=== PATIENT | female | born 1935 ===

== ENCOUNTER 2016-10-07 16:32 | Emergency (ER) | payer MEDICARE, OTHER ==
[2016-10-07 16:49] VITALS: BMI 24.2
[2016-10-07 16:52] VITALS: TEMP 99; O2SAT 97
--- NOTE | 2016-10-07 17:12 | ED PDOC ---
Arrival/HPI - General Chief Complaint: Trauma Time Seen by Provider: 10/07/16 16:56 Historian: Patient, Family (son translates) - History of Present Illness Time/Duration: Other (yesterday) Symptom Onset: Sudden Symptom Course: Unchanged Quality: Aching Severity Level: Mild Associated Symptoms (Text): 10/07/16 17:10 Yesterday the patient was transferring from the wheelchair to the bed. She went to sit down and missed the edge and fell onto her buttocks. There was no head trauma loss of consciousness syncope dizziness lightheadedness numbness tingling or paresthesias. No extremity trauma. She complains of lower back pain. No neck pain. Past Medical History - Infectious Disease Hx of Infectious Diseases: None - Cardiac Hx Cardiac Disorders: Yes Hx Hypertension: Yes - Pulmonary Hx Respiratory Disorders: Yes Hx Asthma: Yes - Neurological Hx Neurological Disorder: Yes (H/O POLIO LEFT LEG WEAKNESS) - HEENT Hx HEENT Disorder: Yes Hx Cataracts: Yes (BIOL) - Renal Hx Renal Disorder: No - Endocrine/Metabolic Hx Endocrine Disorders: Yes Hx Diabetes Mellitus Type 2: Yes - Hematological/Oncological Hx Blood Disorders: No - Integumentary Hx Dermatological Disorder: No - Musculoskeletal/Rheumatological Hx Musculoskeletal Disorders: No - Gastrointestinal Hx Gastrointestinal Disorders: Yes HX Swallowing Problems: Yes - Genitourinary/Gynecological Hx Genitourinary Disorders: No - Psychiatric Hx Psychophysiologic Disorder: Yes Hx Anxiety: Yes Hx Substance Use: No - Surgical History Hx Cataract Extraction: Yes (BIOL) Hx Joint Replacement: Yes (RIGHT HIP REPLACEMENT X 2) Other/Comment: L THR - Anesthesia Hx Anesthesia: Yes Hx Anesthesia Reactions: No Hx Malignant Hyperthermia: No - Suicidal Assessment Feels Threatened In Home Enviroment: No Family/Social History - Physician Review Nursing Documentation Reviewed: Yes Family/Social History: Unknown Family HX Smoking Status: Never Smoked Hx Alcohol Use: No Hx Substance Use: No Allergies/Home Meds Allergies/Adverse Reactions: Allergies No Known Allergies Allergy (Verified 10/07/16 16:49) Home Medications: Home Meds Medication Instructions Recorded Confirmed Montelukast [Singulair] 10 mg PO DAILY 12/12/13 10/07/16 Omeprazole 20 mg PO DAILY 02/16/16 10/07/16 ALPRAZolam [Xanax] 0.5 mg PO HS PRN 07/14/16 10/07/16 Atenolol [Tenormin] 25 mg PO DAILY 07/14/16 10/07/16 Atorvastatin [Lipitor] 10 mg PO HS 07/14/16 10/07/16 Review of Systems - Physician Review All systems were reviewed & negative as marked: Yes - Review of Systems Respiratory: Normal Cardiovascular: Normal Gastrointestinal: Normal Genitourinary Female: Normal Physical Exam Vital Signs Temp Pulse Resp BP Pulse Ox 10/07/16 16:49 99 F 85 16 191/77 H 97 Temperature: Afebrile Blood Pressure: Hypertensive Pulse: Regular Respiratory Rate: Normal Appearance: Positive for: Well-Appearing, Non-Toxic, Uncomfortable Pain Distress: Mild Mental Status: Positive for: Alert and Oriented X 3 - Systems Exam Head: Present: Atraumatic, Normocephalic Neck: Present: Normal Range of Motion. No: MIDLINE TENDERNESS, Paraspinal Tenderness Respiratory/Chest: Present: Clear to Auscultation, Good Air Exchange. No: Respiratory Distress, Accessory Muscle Use Cardiovascular: Present: Regular Rate and Rhythm, Normal S1, S2. No: Murmurs Abdomen: Present: Normal Bowel Sounds. No: Tenderness, Distention, Peritoneal Signs, Rebound, Guarding Back: Present: Normal Inspection, Midline Tenderness, Paraspinal Tenderness, Other (Bilateral lumbar paraspinous tenderness with no spasm. No skin changes. No sciatic notch tenderness.). No: CVA Tenderness Upper Extremity: Present: Normal Inspection. No: Cyanosis, Edema Lower Extremity: Present: Normal Inspection, Other (polio left lower extremity) . No: Edema Neurological: Present: GCS=15, CN II-XII Intact, Speech Normal, Motor Func Grossly Intact Skin: Present: Warm, Dry, Normal Color. No: Rashes Medical Decision Making - RAD Interpretation Radiology Orders: 10/07/16 17:08 PELVIS ONE VIEW [RAD] Stat 10/07/16 17:09 LS SPINE WITH OBL > 18 YRS OLD [RAD] Stat Pelvis one view shows right hip hardware. DJD with no fracture or dislocation. Lumbosacral spine shows severe DJD. Compression fracture, age indeterminate. Contact Manager: ED Physician - Medication Orders Current Medication Orders: Discontinued Medications Acetaminophen (Tylenol 325mg Tab) 975 mg PO STAT STA Stop: 10/07/16 17:09 Disposition/Present on Arrival - Present on Arrival Any Indicators Present on Arrival: No History of DVT/PE: No History of Uncontrolled Diabetes: No Urinary Catheter: No History of Decub. Ulcer: No History Surgical Site Infection Following: None - Disposition Have Diagnosis and Disposition been Completed?: Yes Diagnosis: Contusion of buttock, Back contusion, Osteoarthritis, Lumbar compression fracture Disposition: HOME/ ROUTINE Disposition Time: 18:22 Patient Plan: Discharge Condition: GOOD Discharge Instructions (ExitCare): Contusion in Adults (ED), Vertebral Compression Fracture (ED) Additional Instructions: Rest and moist heat. Follow-up with Dr. Mooney. Follow-up in the ER as needed. Prescriptions: Tramadol HCl [Ultram] 50 mg PO Q6 PRN #15 tab PRN Reason: Pain
[2016-10-07 18:42] VITALS: BP 185/75; PULSE 79; RESP 18
--- NOTE | 2016-10-08 09:15 | RAD ---
PROCEDURE: Radiographs of the pelvis. HISTORY: trauma COMPARISON: 02/19/2016 -left hip FINDINGS: BONES: Sacroiliac sclerosis, inferior lumbar spondylosis and degenerative disc disease. Status post right hip arthroplasty -femoral component with cerclage wires. Acetabular component with at least 1 vertical screw. Slight deformity of the inferior right pubic ring does not appear acute Left proximal femur evaluation limited - seen on end. No interval changes perceived. Pubic symphyseal joint is normal Generalized osteopenia JOINTS: As above OTHER FINDINGS: None IMPRESSION: No interval fractures appreciated. No gross interval hardware failure. Limited evaluation of the proximal left femur specially the neck given its anteverted -on end appearance .
--- NOTE | 2016-10-08 09:27 | RAD ---
PROCEDURE: Radiographs of the Lumbar Spine. HISTORY: trauma COMPARISON: No prior. FINDINGS: BONES: Inferior slight rightward convexity degenerative type wedging of the left L4 vertebral body. Five non rib-bearing lumbar vertebrae suggested minimal anterior compression/wedging of L3 - inferior sclerotic changes - the exact chronicity of this is unknown. No retropulsed ossific fragments. Degenerative wedging with marked prominent marginal osteophytes are favored. Additional marginal osteophytes at the L4-5 left side and on the left L4 L3-4 side are present DISC SPACES: Severe L4-5 disc space narrowing OTHER FINDINGS: Left L4-5 and right L5-S1 right L4-5 facet arthrosis. Extensive atherosclerotic vascular calcifications descending abdominal aorta Partially visualized is a right prosthesis IMPRESSION: Mild scoliosis, advanced spondylosis and advanced degenerative disc disease. The mild loss of height of the main the L3 vertebral body on the lateral view may be due to degenerative wedging. Some minimal compression deformity here is difficult to exclude no comparisons are available. No retropulsed ossific fragments appreciated. Degenerative wedging is favored.
== END 2016-10-07 18:48 | disposition home or self-care (01) ==
LOC: ED 16:32
DX: S30.0XXA Contusion of lower back and pelvis, initial encounter (principal); W06.XXXA Fall from bed, initial encounter; I10 Essential (primary) hypertension; E11.9 Type 2 diabetes mellitus without complications; M48.56XA Collapsed vertebra, not elsewhere classified, lumbar region, initial encounter for fracture; M19.90 Unspecified osteoarthritis, unspecified site

== ENCOUNTER 2016-10-12 08:12 | Emergency (ER) | payer MEDICARE, OTHER ==
[2016-10-12 08:23] VITALS: BP 189/86; PULSE 84; RESP 18; TEMP 98.1; O2SAT 99; BMI 31.1
--- NOTE | 2016-10-12 08:23 | ED PDOC ---
Arrival/HPI - General Chief Complaint: Trauma Time Seen by Provider: 10/12/16 08:16 Historian: Patient - History of Present Illness Narrative History of Present Illness (Text): 10/12/16 08:22 Latasha Jennings is an 81 year old female who presents to the emergency department today for pain to the right buttocks. About a week ago patient injuring the right buttocks and back and was seen in the emergency department status post the fall. Patient was found to have an age indeterminate L3 fracture and was seen home on Ultram. Patient otherwise denies any other pain, trauma, or injury. PMD: None reported. Time/Duration: 1 week Symptom Onset: Gradual Symptom Course: Unchanged Activities at Onset: Light Context: Home Associated Symptoms (Text): 10/12/16 08:41 Patient had a mechanical fall when transferring from the wheelchair approximately one week ago. She was seen in the emergency department by myself. She had x-rays at that time which showed an age indeterminant L3 compression fracture. She was given a prescription for Ultram. The Ultram is no longer helping. There was no new injury or trauma. No abdominal pain nausea vomiting or diarrhea. No genitourinary symptoms. No fever or chills. Past Medical History - Provider Review Nursing Documentation Reviewed: Yes - Infectious Disease Hx of Infectious Diseases: None - Cardiac Hx Cardiac Disorders: Yes Hx Hypertension: Yes - Pulmonary Hx Respiratory Disorders: Yes Hx Asthma: Yes - Neurological Hx Neurological Disorder: Yes (H/O POLIO LEFT LEG WEAKNESS) - HEENT Hx HEENT Disorder: Yes Hx Cataracts: Yes (BIOL) - Renal Hx Renal Disorder: No - Endocrine/Metabolic Hx Endocrine Disorders: Yes Hx Diabetes Mellitus Type 2: Yes - Hematological/Oncological Hx Blood Disorders: No - Integumentary Hx Dermatological Disorder: No - Musculoskeletal/Rheumatological Hx Musculoskeletal Disorders: No - Gastrointestinal Hx Gastrointestinal Disorders: Yes HX Swallowing Problems: Yes - Genitourinary/Gynecological Hx Genitourinary Disorders: No - Psychiatric Hx Psychophysiologic Disorder: Yes Hx Anxiety: Yes Hx Substance Use: No - Surgical History Hx Cataract Extraction: Yes (BIOL) Hx Joint Replacement: Yes (RIGHT HIP REPLACEMENT X 2) Other/Comment: L THR - Anesthesia Hx Anesthesia: Yes Hx Anesthesia Reactions: No Hx Malignant Hyperthermia: No - Suicidal Assessment Feels Threatened In Home Enviroment: No Family/Social History - Physician Review Nursing Documentation Reviewed: Yes Family/Social History: No Known Family HX Smoking Status: Never Smoked Hx Alcohol Use: No Hx Substance Use: No Allergies/Home Meds Allergies/Adverse Reactions: Allergies No Known Allergies Allergy (Verified 10/12/16 08:18) Home Medications: Home Meds Medication Instructions Recorded Confirmed Montelukast [Singulair] 10 mg PO DAILY 12/12/13 10/07/16 Omeprazole 20 mg PO DAILY 02/16/16 10/07/16 ALPRAZolam [Xanax] 0.5 mg PO HS PRN 07/14/16 10/07/16 Atenolol [Tenormin] 25 mg PO DAILY 07/14/16 10/07/16 Atorvastatin [Lipitor] 10 mg PO HS 07/14/16 10/07/16 Review of Systems - Physician Review All systems were reviewed & negative as marked: Yes - Review of Systems Constitutional: Normal. absent: Fevers Respiratory: Normal. absent: SOB Cardiovascular: Normal. absent: Chest Pain Gastrointestinal: Normal. absent: Abdominal Pain, Diarrhea, Nausea, Vomiting Genitourinary Female: Normal. absent: Dysuria, Frequency, Hematuria, Urine Output Changes Musculoskeletal: Other (Pain to the Right Buttocks) Skin: Normal Neurological: Normal Physical Exam Vital Signs Reviewed: Yes Vital Signs Temp Pulse Resp BP Pulse Ox 10/12/16 08:16 98.1 F 84 18 189/86 H 99 Temperature: Afebrile Blood Pressure: Hypertensive Pulse: Regular Respiratory Rate: Normal Appearance: Positive for: Well-Appearing, Non-Toxic, Uncomfortable Pain Distress: Mild Mental Status: Positive for: Alert and Oriented X 3 - Systems Exam Head: Present: Atraumatic, Normocephalic Pupils: Present: PERRL Extroacular Muscles: Present: EOMI Conjunctiva: Present: Normal Mouth: Present: Moist Mucous Membranes Neck: Present: Normal Range of Motion Respiratory/Chest: Present: Clear to Auscultation, Good Air Exchange. No: Respiratory Distress, Accessory Muscle Use Cardiovascular: Present: Regular Rate and Rhythm, Normal S1, S2. No: Murmurs Abdomen: Present: Normal Bowel Sounds. No: Tenderness, Distention, Peritoneal Signs Back: Present: Normal Inspection. No: CVA Tenderness, Midline Tenderness, Paraspinal Tenderness Upper Extremity: Present: Normal Inspection. No: Cyanosis, Edema Lower Extremity: Present: Tenderness, Other (Pain to the Right Buttocks Area). No: Edema, Swelling, Erythema, Deformity Neurological: Present: GCS=15, CN II-XII Intact, Speech Normal, Motor Func Grossly Intact Skin: Present: Warm, Dry, Normal Color. No: Rashes Psychiatric: Present: Alert, Oriented x 3, Normal Insight, Normal Concentration Medical Decision Making ED Course and Treatment: 10/12/16 08:22 Impression: 81 year old female complaining of pain to the right buttocks. Patient recently fell about a week ago. Plan: -- Toradol -- Reassess and disposition Prior Visits: Notes and results from previous visits were reviewed Patient was last seen in the emergency department on 10/07/16 status post a fall. Pelvis X-ray negative and Lumbrasacral spine X-ray showed age indeterminate fracture. Progress Notes: - RAD Interpretation Radiology Orders: 10/12/16 08:43 Femur Right [FEMUR MIN 2 VIEWS RT] [RAD] Stat Right femur shows a total hip replacement. No fracture or dislocation Machine Molder: ED Physician - Medication Orders Current Medication Orders: Discontinued Medications Ketorolac Tromethamine (Toradol) 30 mg IM ONCE ONE Stop: 10/12/16 08:20 Last Admin: 10/12/16 08:30 Dose: 30 mg - Scribe Statement The provider has reviewed the documentation as recorded by the Jeannette Hansen Provider Attestation: All medical record entries made by the Jeannette were at my direction and personally dictated by me. I have reviewed the chart and agree that the record accurately reflects my personal performance of the history, physical exam, medical decision making, and the department course for this patient. I have also personally directed, reviewed, and agree with the discharge instructions and disposition. Disposition/Present on Arrival - Present on Arrival Any Indicators Present on Arrival: No History of DVT/PE: No History of Uncontrolled Diabetes: No Urinary Catheter: No History of Decub. Ulcer: No History Surgical Site Infection Following: None - Disposition Have Diagnosis and Disposition been Completed?: Yes Diagnosis: Lumbar compression fracture, Contusion of buttock Disposition: HOME/ ROUTINE Disposition Time: 09:12 Patient Plan: Discharge Condition: GOOD Discharge Instructions (ExitCare): Vertebral Compression Fracture (ED), Contusion in Adults (ED) Additional Instructions: Rest and moist heat. Follow-up with Dr. Mooney. Follow up in ER as needed Prescriptions: oxyCODONE/Acetaminophen [Percocet 5/325 mg Tab] 1 ea PO Q6 #15 tab Ondansetron [Zofran Odt] 4 mg SL Q6 #20 odt
--- NOTE | 2016-10-12 12:42 | RAD ---
PROCEDURE: Right femur HISTORY: trauma COMPARISON: Hip and pelvis 02/19/2016 TECHNIQUE: Two views of right femur. FINDINGS: Status post right hip arthroplasty. No acute fracture. No evidence of prosthesis loosening. No dislocation. IMPRESSION: No acute fracture. Right hip arthroplasty peer
== END 2016-10-12 09:30 | disposition home or self-care (01) ==
LOC: ED 08:12
DX: S30.0XXD Contusion of lower back and pelvis, subsequent encounter (principal); M48.56XD Collapsed vertebra, not elsewhere classified, lumbar region, subsequent encounter for fracture with routine healing; W06.XXXD Fall from bed, subsequent encounter
CPT/HCPCS: 73552; 96372; 99283; J1885

== ENCOUNTER 2016-10-23 19:32 | Inpatient (IN) | payer MEDICARE, OTHER ==
[2016-10-23 19:44] VITALS: BMI 22.8
--- NOTE | 2016-10-23 20:08 | ED PDOC ---
Arrival/HPI - General Historian: Patient - History of Present Illness Time/Duration: < week Symptom Onset: Gradual Symptom Course: Unchanged Quality: Other (no pain) Severity Level: Moderate Activities at Onset: Rest Context: Home <nAna Patel - Last Filed: 10/23/16 22:02> <Darnell Knight - Last Filed: 10/23/16 22:07> - General Chief Complaint: GI Problem Time Seen by Provider: 10/23/16 19:35 - History of Present Illness Narrative History of Present Illness (Text): 10/23/16 20:05 This is an 81Y F with PMH polio s/p L leg weakness, cataracts, HTN, HLD , asthma, anxiety and dementia who came to ED for diarrhea x 2 days. She reports it is constant and dark in color. She denies having abdominal pain, n/v , dysuria, hematuria, CP, SOB, sick contacts or eating new foods. The patient denies fever or chills. She is also complaining of R sided leg and back pain. She was recently seen at [facility] for fall on the R side. Patient reports she lives alone. (Anna Patel) Past Medical History - Provider Review Nursing Documentation Reviewed: Yes - Infectious Disease Hx of Infectious Diseases: None - Cardiac Hx Cardiac Disorders: Yes Hx Hypertension: Yes - Pulmonary Hx Respiratory Disorders: Yes Hx Asthma: Yes - Neurological Hx Neurological Disorder: Yes (H/O POLIO LEFT LEG WEAKNESS) - HEENT Hx HEENT Disorder: Yes Hx Cataracts: Yes (BIOL) - Renal Hx Renal Disorder: No - Endocrine/Metabolic Hx Endocrine Disorders: Yes Hx Diabetes Mellitus Type 2: Yes - Hematological/Oncological Hx Blood Disorders: No - Integumentary Hx Dermatological Disorder: No - Musculoskeletal/Rheumatological Hx Musculoskeletal Disorders: No - Gastrointestinal Hx Gastrointestinal Disorders: Yes HX Swallowing Problems: Yes - Genitourinary/Gynecological Hx Genitourinary Disorders: No - Psychiatric Hx Psychophysiologic Disorder: Yes Hx Anxiety: Yes Hx Substance Use: No - Surgical History Hx Cataract Extraction: Yes (BIOL) Hx Joint Replacement: Yes (RIGHT HIP REPLACEMENT X 2) Other/Comment: L THR - Anesthesia Hx Anesthesia: Yes Hx Anesthesia Reactions: No Hx Malignant Hyperthermia: No - Suicidal Assessment Feels Threatened In Home Enviroment: No <Anna Patel - Last Filed: 10/23/16 22:02> Family/Social History - Physician Review Nursing Documentation Reviewed: Yes Family/Social History: Unknown Family HX Smoking Status: Never Smoked Hx Alcohol Use: No Hx Substance Use: No <Anna Patel - Last Filed: 10/23/16 22:02> Allergies/Home Meds <Anna Patel - Last Filed: 10/23/16 22:02> <Darnell Knight - Last Filed: 10/23/16 22:07> Allergies/Adverse Reactions: Allergies No Known Allergies Allergy (Verified 10/12/16 08:18) Home Medications: Home Meds Medication Instructions Recorded Confirmed Unobtainable 10/23/16 10/23/16 Review of Systems - Physician Review All systems were reviewed & negative as marked: Yes - Review of Systems Constitutional: Normal. absent: Weight Change, Fevers Eyes: Normal. absent: Vision Changes ENT: Normal Respiratory: Normal. absent: SOB, Cough Cardiovascular: Normal. absent: Chest Pain Gastrointestinal: Stool Changes, Diarrhea. absent: Abdominal Pain, Constipation , Nausea, Vomiting, Hematemesis Genitourinary Female: Normal. absent: Dysuria, Frequency, Hematuria Musculoskeletal: Normal. absent: Arthralgias Skin: Normal. absent: Rash, Pruritis Neurological: Normal. absent: Headache, Dizziness Endocrine: Normal. absent: Diaphoresis Hemo/Lymphatic: Normal <Anna Patel - Last Filed: 10/23/16 22:02> Physical Exam Vital Signs Reviewed: Yes Temperature: Afebrile Blood Pressure: Hypertensive Pulse: Tachycardic Respiratory Rate: Normal Appearance: Positive for: Well-Appearing, Non-Toxic, Comfortable Pain Distress: None Mental Status: Positive for: Alert and Oriented X 3 - Systems Exam Head: Present: Atraumatic, Normocephalic Mouth: Present: Moist Mucous Membranes Neck: Present: Normal Range of Motion Respiratory/Chest: Present: Clear to Auscultation, Good Air Exchange. No: Respiratory Distress, Accessory Muscle Use Cardiovascular: Present: Regular Rate and Rhythm, Normal S1, S2. No: Murmurs Abdomen: Present: Normal Bowel Sounds. No: Tenderness, Distention, Peritoneal Signs, Rebound, Guarding Rectal: Present: Rectal Tenderness, Hemorrhoids, Normal Rectal Tone. No: Occult Blood, Gross Blood, Melena Back: Present: Normal Inspection Upper Extremity: Present: Normal Inspection. No: Cyanosis, Edema Lower Extremity: Present: Normal Inspection. No: Edema Neurological: Present: GCS=15, CN II-XII Intact, Speech Normal Skin: Present: Warm, Dry, Normal Color. No: Rashes Psychiatric: Present: Alert, Normal Concentration, Other. No: Oriented x 3, Normal Insight <Anna Patel - Last Filed: 10/23/16 22:02> <Darnell Knight - Last Filed: 10/23/16 22:07> Vital Signs Temp Pulse Resp BP Pulse Ox 10/23/16 19:44 98.5 F 103 H 20 187/92 H 100 Medical Decision Making Re-evaluation Time: 21:41 - Lab Interpretations I have reviewed the lab results: Yes Interpretation: Abnormal lab values - EKG Interpretation Interpreted by ED Physician: Yes Type: 12 lead EKG Comparison: Com.w/previous EKG <Anna Patel - Last Filed: 10/23/16 22:02> <Darnell Knight - Last Filed: 10/23/16 22:07> ED Course and Treatment: Impression: This is an 81Y F with PMH polio s/p L leg weakness, cataracts, HTN, HLD , asthma, anxiety and dementia who came to ED for diarrhea x 2 days. She denies abdominal pain. DDX: Colitis, Diverticulitis Plan: -- CBC, CMP, U/A, Hemeoccult -- EKG -- Reassess Prior Visits: Notes and results from previous visits were reviewed. Progress Note: Hemeoccult noted to be negative. Daughter is now at bedside. Patient complains of R leg pain. Given Toradol for pain. Spoke with daughter who is very concerned about her mother's well-being. Her mother lives alone, does not remember to take her medication and has had multiple falls. Her mother won't answer the door if help comes to her door. She would like her mother to be placed in a facility where she can have 24hr care. Admit Patient: Re-evaluation. Patient feels better. Discussed results and plan to admit with patient who expresses understanding. All questions answered and there is agreement with the plan. (Anna Patel) 10/23/16 20:26 Seen and examined with the resident. Our history and physical exam reveals an elderly woman complaining of a 2 day history of diarrhea. No vomiting. No abdominal pain. Has been black, but her rectal exam is guaiac negative. I have seen her twice before for lower back pain and right lower extremity pain. She continues to have the same complaints. She did have a compression fracture, the other x-rays have been negative. 10/23/16 21:53 Patient's daughter is here and reports that the patient is unable to care for herself at home. She lives at home alone. Daughter has had Adult Protective Services and multiple different home health aids which the patient refuses to allow into her home. Daughter reports that she would like retirement placement and the patient agrees to go to a retirement. I spoke with who requests that the hospitalist admit the patient for retirement placement. I spoke with the house doctor who will admit to the hospitalist service. Patient has fallen multiple times according to the daughter. She is a danger to herself to be at home alone. 10/23/16 22:06 EKG shows normal sinus rhythm rate approximately 90 with a primary AV block and no acute ST or T-wave changes (Tolerico,Darnell) - Lab Interpretations Lab Results: 10/23/16 20:11 10/23/16 20:11 Lab Results 10/23/16 21:15: Urine Color Yellow, Urine Appearance Clear, Urine pH 7.5, Ur Specific [place] 1.020, Urine Protein Negative, Urine Glucose (UA) 500 H, Urine Ketones Negative, Urine Blood Trace-intact H, Urine Nitrate Negative, Urine Bilirubin Negative, Urine Urobilinogen 1.0 H, Ur Leukocyte Esterase Negative, Urine RBC 2 - 5, Urine WBC 0 - 2, Ur Epithelial Cells 3 - 4 10/23/16 20:11: Sodium 142, Potassium 3.5 L, Chloride 102, Carbon Dioxide 31, Anion Gap 13, BUN 12, Creatinine 0.7, Est GFR ( Amer) > 60, Est GFR (Non- Af Amer) > 60, Random Glucose 98, Calcium 10.1, Total Bilirubin 0.9, AST 30, ALT 23, Alkaline Phosphatase 142 H, Total Protein 8.2, Albumin 4.3, Globulin 3.9 , Albumin/Globulin Ratio 1.1 10/23/16 20:11: WBC 6.4, RBC 4.55, Hgb 14.1, Hct 41.7, MCV 91.6, MCH 31.0, MCHC 33.8, RDW 12.7, Plt Count 305, MPV 10.3, Gran % 68.9 H, Lymph % (Auto) 19.3 L, [place] % (Auto) 10.8 H, Eos % (Auto) 0.5 L, Baso % (Auto) 0.5, Gran # 4.39, Lymph # 1.2, [place] # 0.7 H, Eos # 0.0, Baso # 0.03 - EKG Interpretation EKG Interpretation (Text): 10/23/16 20:13 HR at 93. [place] interval prolonged. Other intervals within normal limits. Sinus rhythm with 1st degree AV block. (Anna Patel) - Medication Orders Current Medication Orders: Discontinued Medications Ketorolac Tromethamine (Toradol) 15 mg IVP STAT STA Stop: 10/23/16 21:40 Last Admin: 10/23/16 22:02 Dose: 15 mg Potassium Chloride (Klor-Con 10) 10 meq PO STAT STA Stop: 10/23/16 20:42 Last Admin: 10/23/16 21:23 Dose: 10 meq Disposition/Present on Arrival - Present on Arrival Any Indicators Present on Arrival: No History of DVT/PE: No History of Uncontrolled Diabetes: No Urinary Catheter: No History of Decub. Ulcer: No History Surgical Site Infection Following: None - Disposition Have Diagnosis and Disposition been Completed?: Yes Patient Plan: Admission <Anna Patel - Last Filed: 10/23/16 22:02> - Present on Arrival Any Indicators Present on Arrival: No History of DVT/PE: No History of Uncontrolled Diabetes: No Urinary Catheter: No History of Decub. Ulcer: No - Disposition Have Diagnosis and Disposition been Completed?: Yes Disposition Time: 21:56 Patient Plan: Admission <Darnell Knight - Last Filed: 10/23/16 22:07> - Disposition Diagnosis: Diarrhea, Hypokalemia, Dementia, Weakness, Hypertension Disposition: HOSPITALIZED Patient Problems: Current Active Problems Problem Status Onset Dementia Acute Diarrhea Acute Hypertension Acute Hypokalemia Acute Weakness Acute Condition: GOOD Discharge Instructions (ExitCare): Weakness (ED) Print Language: CZECH Referrals: [facility] Sarah Req, [Primary Care Provider] - Follow up with primary
[2016-10-23 20:15] LABS: ADD MANUAL DIFF? NO
[2016-10-23 20:22] LABS: BASO # 0.03 K/mm3 (0.0-2.0); BASO % 0.5 % (0.0-3.0); EOS % 0.5 % (1.5-5.0); GRAN # 4.39 (1.4-6.5); GRAN % 68.9 % (50.0-68.0); HEMATOCRIT 41.7 % (36.0-48.0); LYMPH # 1.2 (1.2-3.4); LYMPH % 19.3 % (22.0-35.0); MEAN CELL VOLUME 91.6 fL (80.0-105.0); MEAN CORPUSCULAR HGB CONC 33.8 g/dl (31.0-37.0); MEAN PLATELET VOLUME 10.3 fl (7.0-11.0); MONO # 0.7 (0.1-0.6); MONO % 10.8 % (1.0-6.0); PLATELET COUNT 305 10^3/uL (120.0-450.0); RED CELL DISTRIBUTION WIDTH 12.7 % (11.5-14.5); WHITE BLOOD COUNT 6.4 10^3/ul (4.5-11.0)
[2016-10-23 20:31] LABS: ALB/GLOB RATIO 1.1 (1.1-1.8); ALKALINE PHOSPHATASE 142 U/L (38-133); ALT/SGPT 23 U/L (7-56); AST/SGOT 30 U/L (15-39); BILIRUBIN,TOTAL 0.9 mg/dL (0.2-1.3); BLOOD UREA NITROGEN 12 mg/dL (7-21); CALCIUM 10.1 mg/dL (8.4-10.5); CARBON DIOXIDE 31 mmol/L (21-33); CHLORIDE 102 mmol/L (98-107); GFR AFRICAN-AMERICAN > 60; GLUCOSE,RANDOM 98 mg/dL (70-110); POTASSIUM 3.5 mmol/L (3.6-5.0); SODIUM 142 mmol/L (132-148); TOTAL PROTEIN 8.2 g/dL (5.8-8.3)
[2016-10-23] MEDS ORDERED: Potassium Chloride 10 mEq ER Tab PO STA (20:41)
[2016-10-23 21:29] LABS: PH,URINE 7.5 (4.7-8.0); URINE BILIRUBIN NEGATIVE (NEGATIVE); URINE BLOOD TRACE-INTACT (NEGATIVE); URINE GLUCOSE (UA) 500 mg/dL (NEGATIVE); URINE KETONE NEGATIVE (NEGATIVE); URINE LEUKOCYTE ESTERASE NEGATIVE Leu/uL (NEGATIVE); URINE PROTEIN NEGATIVE mg/dL (<30 mg/dL)
[2016-10-23 21:39] LABS: URINE COLOR YELLOW (YELLOW)
[2016-10-23 21:40] LABS: URINE APPEARANCE CLEAR (CLEAR)
[2016-10-23 21:41] LABS: URINE WBC 0 - 2 /hpf (0-6)
--- NOTE | 2016-10-24 00:33 | CP.PCM.HP ---
<Lisandra Sosa - Last Filed: 10/24/16 01:31> History of Present Illness - History of Present Illness History of Present Illness: PGY-1 h&p 81 yo female with PMH of polio s/p left weakness, cataract, HTN, HLD, asthma, anxiety, DM and dementia presents to ED with diarrhea and abd pain. Patient states that the diarrhea has been constant for past 2 days. Denies any blood in the stool. Per daughter patient had recent been to the ED for falling twice within the last few weeks. Patient uses a wheelchair at baseline. Patient also reports mild dry cough. Denies headache, dizziness, chest pain, urinary symptoms. In ED patient was found to be hypertensive. Per daughter patient lives alone and compliance with medication is unknown. PMH: polio s/p left weakness, cataract, HTN, HLD, asthma, anxiety, DM and dementia PSH: right sided hip replacement x2 Social: denies smoking, alcohol use, illicit drug use fam hx: mother- DM allergy: NKDA PMD: Dr. Mooney Present on Admission - Present on Admission Any Indicators Present on Admission: No Review of Systems - Constitutional Constitutional: absent: Chills, Fatigue, Fever, Headache, Weight Gain, Weight Loss, Weakness - EENT Nose/Mouth/Throat: absent: Nasal Congestion, Nasal Discharge, Sore Throat - Cardiovascular Cardiovascular: absent: Chest Pain, Chest Pain with Activity, Diaphoresis, Dyspnea - Respiratory Respiratory: Cough. absent: Dyspnea, Hemoptysis - Gastrointestinal Gastrointestinal: Abdominal Pain, Diarrhea. absent: Constipation, Hematochezia , Nausea, Vomiting - Genitourinary Genitourinary: absent: Difficulty Urinating, Dysuria, Hematuria - Musculoskeletal Musculoskeletal: Muscle Weakness, Myalgias - Integumentary Integumentary: absent: Rash, Skin Ulcer, Striae, Wounds - Neurological Neurological: absent: Dizziness, Headaches, Syncope, Weakness - Hematologic/Lymphatic Hematologic: absent: Easy Bleeding, Easy Bruising Past Patient History - Infectious Disease Hx of Infectious Diseases: None - Past Medical History & Family History Past Medical History?: Yes - Past Social History Smoking Status: Never Smoked Alcohol: None Drugs: Denies - CARDIAC Hx Cardiac Disorders: Yes Hx Hypertension: Yes - PULMONARY Hx Respiratory Disorders: Yes Hx Asthma: Yes - NEUROLOGICAL Hx Neurological Disorder: Yes (H/O POLIO LEFT LEG WEAKNESS) - HEENT Hx HEENT Problems: Yes Hx Cataracts: Yes (BIOL) - RENAL Hx Chronic Kidney Disease: No - ENDOCRINE/METABOLIC Hx Endocrine Disorders: Yes Hx Diabetes Mellitus Type 2: Yes - HEMATOLOGICAL/ONCOLOGICAL Hx Blood Disorders: No - INTEGUMENTARY Hx Dermatological Problems: No - MUSCULOSKELETAL/RHEUMATOLOGICAL Hx Musculoskeletal Disorders: No - GASTROINTESTINAL Hx Gastrointestinal Disorders: Yes HX Swallowing Problems: Yes - GENITOURINARY/GYNECOLOGICAL Hx Genitourinary Disorders: No - PSYCHIATRIC Hx Psychophysiologic Disorder: Yes Hx Anxiety: Yes Hx Substance Use: No - SURGICAL HISTORY Hx Cataract Extraction: Yes (BIOL) Hx Joint Replacement: Yes (RIGHT HIP REPLACEMENT X 2) Other/Comment: L THR - ANESTHESIA Hx Anesthesia: Yes Hx Anesthesia Reactions: No Hx Malignant Hyperthermia: No Meds Allergies/Adverse Reactions: Allergies Allergy/AdvReac Type Severity Reaction Status Date / Time No Known Allergies Allergy Verified 10/12/16 08:18 Physical Exam - Constitutional Appears: Well, No Acute Distress - Head Exam Head Exam: ATRAUMATIC, NORMOCEPHALIC - Eye Exam Eye Exam: Normal appearance - ENT Exam ENT Exam: Mucous Membranes Moist - Respiratory Exam Respiratory Exam: Clear to Auscultation Bilateral, NORMAL BREATHING PATTERN. absent: Rhonchi, Wheezes, Respiratory Distress - Cardiovascular Exam Cardiovascular Exam: REGULAR RHYTHM, +S1, +S2. absent: Tachycardia, Diastolic murmur, Systolic Murmur - GI/Abdominal Exam GI & Abdominal Exam: Normal Bowel Sounds, Soft. absent: Distended, Firm, Guarding, Tenderness - Extremities Exam Extremities exam: Positive for: normal inspection, tenderness Results - Vital Signs Recent Vital Signs: Last Vital Signs Temp 98.5 F 10/23/16 19:44 Pulse 75 10/23/16 23:41 Resp 16 10/23/16 23:41 BP 193/82 H 10/23/16 23:41 Pulse Ox 100 10/23/16 23:41 - Labs Result Diagrams: 10/23/16 20:11 10/23/16 20:11 Assessment & Plan - Assessment and Plan (Free Text) Assessment: 81 yo female with PMH of polio s/p left weakness, cataract, HTN, HLD, asthma, anxiety, DM and dementia presents to ED with diarrhea and abd pain, found to have uncontrolled HTN in ED. Plan: 1. HTN - cont atenolol 25mg daily - start norvasc 10mg daily - hydralazine 10 PRN - cont to monitor 2. diarrhea and abd pain - improved - IVF NS @100 - cont to monitor 3. DM - hold home medication - lispro ISS- low - Fingersticks ACHS 4. anxiety - cont home med xanax 0.5 BID prn 5. HLD - cont home med lipitor ppx GI- protonix DVT- SCDs <Zeke Donnelly MD - Last Filed: 10/26/16 09:03> Results - Vital Signs Recent Vital Signs: Last Vital Signs Temp 98.9 F 10/26/16 08:16 Pulse 75 10/26/16 08:16 Resp 22 10/26/16 08:16 BP 160/75 H 10/26/16 08:16 Pulse Ox 99 10/26/16 08:16 - Labs Result Diagrams: 10/26/16 07:58 10/26/16 07:58 Labs: Laboratory Results - last 24 hr 10/25/16 10/25/16 10/25/16 09:20 11:28 16:09 WBC RBC Hgb Hct MCV MCH MCHC RDW Plt Count MPV Gran % Lymph % (Auto) [place] % (Auto) Eos % (Auto) Baso % (Auto) Gran # Lymph # [place] # Eos # Baso # Sodium Potassium Chloride Carbon Dioxide Anion Gap BUN Creatinine Est GFR ( Amer) Est GFR (Non-Af Amer) POC Glucose (mg/dL) 210 H 194 H Random Glucose Calcium Magnesium 1.6 L Total Bilirubin AST ALT Alkaline Phosphatase Total Protein Albumin Globulin Albumin/Globulin Ratio 10/25/16 10/26/16 10/26/16 21:36 07:58 07:58 WBC 16.0 H D RBC 4.29 Hgb 13.5 Hct 39.4 MCV 91.8 MCH 31.5 MCHC 34.3 RDW 13.1 Plt Count 276 MPV 10.3 Gran % 86.5 H Lymph % (Auto) 7.6 L [place] % (Auto) 5.1 Eos % (Auto) 0.6 L Baso % (Auto) 0.2 Gran # 13.87 H Lymph # 1.2 [place] # 0.8 H Eos # 0.1 Baso # 0.03 Sodium 142 Potassium 4.6 Chloride 107 Carbon Dioxide 24 Anion Gap 16 BUN 9 Creatinine 0.6 Est GFR ( Amer) > 60 Est GFR (Non-Af Amer) > 60 POC Glucose (mg/dL) 156 H Random Glucose 150 H Calcium 9.0 Magnesium Total Bilirubin 1.0 AST 29 ALT 33 Alkaline Phosphatase 141 H Total Protein 7.5 Albumin 3.9 Globulin 3.5 Albumin/Globulin Ratio 1.1 Attending/Attestation - Attestation I have personally seen and examined this patient.: Yes I have fully participated in the care of the patient.: Yes I have reviewed all pertinent clinical information: Yes Notes (Text): 10/26/16 09:01 -I agree with the above H&P completed by the resident physician with the following changes and/or additions: The patient is an 81 year old woman admitted with uncontrolled HTN and recurring falls. Her BP will be controlled with 2 antihypertensive meds plus PRN Clonidine. Also, her daughter states that the patient can not care for herself and needs shelter placement. Social work consult has been placed.
[2016-10-24] MEDS: Sodium Chloride 0.9% 1,000 ML IV SCH (01:36)
[2016-10-24 07:21] LABS: ADD MANUAL DIFF? NO
[2016-10-24 07:29] LABS: BASO # 0.02 K/mm3 (0.0-2.0); BASO % 0.4 % (0.0-3.0); EOS # 0.3 (0.0-0.7); EOS % 5.1 % (1.5-5.0); GRAN # 2.97 (1.4-6.5); GRAN % 56.1 % (50.0-68.0); HEMATOCRIT 36.6 % (36.0-48.0); LYMPH # 1.6 (1.2-3.4); LYMPH % 30.8 % (22.0-35.0); MEAN CELL VOLUME 92.2 fL (80.0-105.0); MEAN CORPUSCULAR HEMOGLOBIN 30.7 pg (25.0-35.0); MEAN CORPUSCULAR HGB CONC 33.3 g/dl (31.0-37.0); MEAN PLATELET VOLUME 10.3 fl (7.0-11.0); MONO # 0.4 (0.1-0.6); MONO % 7.6 % (1.0-6.0); PLATELET COUNT 263 10^3/uL (120.0-450.0); RED CELL DISTRIBUTION WIDTH 12.8 % (11.5-14.5); WHITE BLOOD COUNT 5.3 10^3/ul (4.5-11.0)
[2016-10-24 07:48] LABS: ALKALINE PHOSPHATASE 108 U/L (38-133); ALT/SGPT 28 U/L (7-56); AST/SGOT 27 U/L (15-39); BILIRUBIN,TOTAL 0.8 mg/dL (0.2-1.3); BLOOD UREA NITROGEN 10 mg/dL (7-21); CALCIUM 8.7 mg/dL (8.4-10.5); CARBON DIOXIDE 31 mmol/L (21-33); CHLORIDE 103 mmol/L (98-107); GFR AFRICAN-AMERICAN > 60; GLUCOSE,RANDOM 189 mg/dL (70-110); POTASSIUM 3.6 mmol/L (3.6-5.0); SODIUM 139 mmol/L (132-148); TOTAL PROTEIN 6.5 g/dL (5.8-8.3)
[2016-10-24] MEDS: Insulin Lispro (humaLOG) LOW Coverage SC SCH ×4 (08:07→22:00)
[2016-10-24] MEDS: Pantoprazole 40 mg EC Tab PO SCH (09:25)
--- NOTE | 2016-10-24 10:13 | CP.PCM.CON ---
History of Present Illness - History of Present Illness History of Present Illness: Palliative consult requested by Dr Elaine Lin Reason: Advance care planning 81 year old female who presented with complaints of diarrhea and weakness of two days duration. She complains of chronic right leg and back pain. She was admitted with uncontrolled hypertension and hypokalemia. PMHx: polio with residual left leg weakness, s/p right hip replacement X2, s/p left knee fracture HTN, HLD, anxiety, dementia, frequent falls. Social History: Non smoker, no alcohol or drug use. Lives alone. Family History: Non contributory. Advance Care Planning: The patient has a POLST:DNR/DNI. A copy is on the chart. Review of Systems: As per HPI, all other systems negative. Past Patient History - Infectious Disease Hx of Infectious Diseases: None - Past Medical History & Family History Past Medical History?: Yes - Past Social History Smoking Status: Never Smoked Alcohol: None Drugs: Denies - CARDIAC Hx Cardiac Disorders: Yes Hx Hypercholesterolemia: Yes Hx Hypertension: Yes - PULMONARY Hx Respiratory Disorders: Yes Hx Asthma: Yes - NEUROLOGICAL Hx Neurological Disorder: Yes Hx Dementia: Yes - HEENT Hx HEENT Problems: Yes Hx Cataracts: Yes (b/l surgically removed) - RENAL Hx Chronic Kidney Disease: No - ENDOCRINE/METABOLIC Hx Endocrine Disorders: Yes Hx Diabetes Mellitus Type 2: Yes - HEMATOLOGICAL/ONCOLOGICAL Hx Blood Disorders: No - INTEGUMENTARY Hx Dermatological Problems: No - MUSCULOSKELETAL/RHEUMATOLOGICAL Hx Musculoskeletal Disorders: Yes Hx Arthritis: Yes Hx Falls: Yes Hx Fractures: Yes (hip, knee, arm, wrist) Other/Comment: Patient had polio, left leg. - GASTROINTESTINAL Hx Gastrointestinal Disorders: No - GENITOURINARY/GYNECOLOGICAL Hx Genitourinary Disorders: No - PSYCHIATRIC Hx Psychophysiologic Disorder: Yes Hx Anxiety: Yes Hx Depression: Yes - SURGICAL HISTORY Hx Surgeries: Yes Other/Comment: Right hip replacement x2 - ANESTHESIA Hx Anesthesia: Yes Hx Anesthesia Reactions: No Hx Malignant Hyperthermia: No Meds Allergies/Adverse Reactions: Allergies Allergy/AdvReac Type Severity Reaction Status Date / Time No Known Allergies Allergy Verified 10/12/16 08:18 - Medications Medications: Current Medications Alendronate Sodium (Fosamax) 70 mg PO QWK LUISANA Alprazolam (Xanax) 0.5 mg PO BID PRN; Protocol PRN Reason: Anxiety Amlodipine Besylate (Norvasc) 10 mg PO DAILY [facility] Last Admin: 10/24/16 09:23 Dose: Not Given Atenolol (Tenormin) 25 mg PO DAILY [facility] Last Admin: 10/24/16 09:25 Dose: 25 mg Atorvastatin Calcium (Lipitor) 10 mg PO DIN [facility] Hydralazine HCl (Apresoline) 10 mg IVP Q6 PRN PRN Reason: Systolic Blood Pressure Sodium Chloride (Sodium Chloride 0.9%) 1,000 mls @ 100 mls/hr IV .Q10H [facility] Last Admin: 10/24/16 01:36 Dose: 100 mls/hr Ibuprofen (Motrin Tab) 400 mg PO Q6H PRN PRN Reason: Pain, moderate (4-7) Last Admin: 10/24/16 02:40 Dose: 400 mg Insulin Human Lispro (Humalog Low) 0 units SC ACHS [facility] PRN Reason: Protocol Last Admin: 10/24/16 08:07 Dose: 1 units Pantoprazole Sodium (Protonix Ec Tab) 40 mg PO DAILY [facility] Last Admin: 10/24/16 09:25 Dose: 40 mg Physical Exam - Constitutional Appears: No Acute Distress - Head Exam Head Exam: NORMAL INSPECTION - Eye Exam Eye Exam: Normal appearance, PERRL - ENT Exam ENT Exam: Mucous Membranes Moist, Normal Oropharynx - Neck Exam Neck exam: Positive for: Normal Inspection - Respiratory Exam Respiratory Exam: Clear to Auscultation Bilateral, NORMAL BREATHING PATTERN - Cardiovascular Exam Cardiovascular Exam: REGULAR RHYTHM, +S1, +S2 - GI/Abdominal Exam GI & Abdominal Exam: Normal Bowel Sounds, Soft Additional comments: no tenderness or guarding - Extremities Exam Extremities exam: Positive for: normal inspection, pedal pulses present - Back Exam Back exam: NORMAL INSPECTION - Neurological Exam Neurological exam: Alert Additional comments: oriented to self - Skin Skin Exam: Dry, Warm - Additional Findings Additional findings: Palliative performance scale rating 50 %. Results - Vital Signs Recent Vital Signs: Last Vital Signs Temp 97.6 F 10/24/16 08:00 Pulse 80 10/24/16 09:25 Resp 20 10/24/16 08:00 BP 147/69 10/24/16 09:25 Pulse Ox 97 10/24/16 08:00 - Labs Result Diagrams: 10/24/16 07:00 10/24/16 07:00 Labs: Laboratory Results - last 24 hr 10/24/16 10/24/16 10/24/16 07:00 07:00 07:50 WBC 5.3 RBC 3.97 Hgb 12.2 Hct 36.6 MCV 92.2 MCH 30.7 MCHC 33.3 RDW 12.8 Plt Count 263 MPV 10.3 Gran % 56.1 Lymph % (Auto) 30.8 [place] % (Auto) 7.6 H Eos % (Auto) 5.1 H Baso % (Auto) 0.4 Gran # 2.97 Lymph # 1.6 [place] # 0.4 Eos # 0.3 Baso # 0.02 Sodium 139 Potassium 3.6 Chloride 103 Carbon Dioxide 31 Anion Gap 9 L BUN 10 Creatinine 0.7 Est GFR ( Amer) > 60 Est GFR (Non-Af Amer) > 60 POC Glucose (mg/dL) 161 H Random Glucose 189 H Calcium 8.7 Total Bilirubin 0.8 AST 27 ALT 28 Alkaline Phosphatase 108 Total Protein 6.5 Albumin 3.3 Globulin 3.2 Albumin/Globulin Ratio 1.0 L Assessment & Plan - Assessment and Plan (Free Text) Assessment: 81 year old female admitted with HTN, hypokalemia. She has history of frequent falls. The patient is wheelchair bound. She is of pleasant demeanor, forgetful at times. Her primary language is Yakut. Family reports that patient had frequent falls and unwilling to let caretakers into her home> Family concerned about compliance with medications Patient and family known to me form previous admission. Patient has a POLST which was completed by me,February 22, 2016. Daughter Kina ([phone]) confirmed this as the most recent directive and that patient is DNR/DNI . Daughter very concerned about her mothers ability to live independently. Daughter planning to meet with SW to discuss discharge plan. Psychical support give. Time spent in discussion with daughter regarding goals of care and advance care planing, 20 minutes Plan: POLST: DNR/DNI
--- NOTE | 2016-10-24 19:07 | CARD ---
APPROVED REPORT EKG Measurement Heart [id number] ID [id number] <Conclusion> Sinus rhythm with 1st degree AV block with premature atrial complexes Minimal voltage criteria for LVH, may be normal variant Borderline ECG
[2016-10-25] MEDS: Sodium Chloride 0.9% 1,000 ML IV SCH (05:33)
[2016-10-25 07:36] LABS: ADD MANUAL DIFF? NO
[2016-10-25 07:57] LABS: ALKALINE PHOSPHATASE 120 U/L (38-133); ALT/SGPT 28 U/L (7-56); AST/SGOT 26 U/L (15-39); BILIRUBIN,TOTAL 0.7 mg/dL (0.2-1.3); BLOOD UREA NITROGEN 11 mg/dL (7-21); CALCIUM 8.2 mg/dL (8.4-10.5); CARBON DIOXIDE 27 mmol/L (21-33); CHLORIDE 109 mmol/L (98-107); GFR AFRICAN-AMERICAN > 60; GLUCOSE,RANDOM 129 mg/dL (70-110); SODIUM 142 mmol/L (132-148); TOTAL PROTEIN 6.5 g/dL (5.8-8.3)
[2016-10-25 08:23] LABS: POTASSIUM 2.9 mmol/L (3.6-5.0)
[2016-10-25 08:44] LABS: BASO # 0.04 K/mm3 (0.0-2.0); BASO % 0.6 % (0.0-3.0); EOS # 0.4 (0.0-0.7); EOS % 5.6 % (1.5-5.0); GRAN # 4.41 (1.4-6.5); GRAN % 66.2 % (50.0-68.0); HEMATOCRIT 35.7 % (36.0-48.0); LYMPH # 1.4 (1.2-3.4); LYMPH % 21.4 % (22.0-35.0); MEAN CELL VOLUME 90.8 fL (80.0-105.0); MEAN CORPUSCULAR HEMOGLOBIN 31.3 pg (25.0-35.0); MEAN CORPUSCULAR HGB CONC 34.5 g/dl (31.0-37.0); MEAN PLATELET VOLUME 10.5 fl (7.0-11.0); MONO # 0.4 (0.1-0.6); MONO % 6.2 % (1.0-6.0); PLATELET COUNT 248 10^3/uL (120.0-450.0); RED CELL DISTRIBUTION WIDTH 12.8 % (11.5-14.5); WHITE BLOOD COUNT 6.7 10^3/ul (4.5-11.0)
[2016-10-25] MEDS: Insulin Lispro (humaLOG) LOW Coverage SC SCH ×4 (09:00→22:25)
[2016-10-25] MEDS ORDERED: Potassium Chloride 20 mEq ER Tab PO ONE ×2 (09:00→12:51)
[2016-10-25] MEDS: Pantoprazole 40 mg EC Tab PO SCH (10:17)
--- NOTE | 2016-10-25 12:55 | CP.PCM.PN ---
Addendum entered and electronically signed by Priscilla Daugherty DO 10/25/16 14:47: Assessment: Patient was hypokalemic. She is given KCl PO and IV. Will continue to monitor and replace as needed. Original Note: <Priscilla Daugherty - Last Filed: 10/25/16 12:52> Subjective - Date & Time of Evaluation Date of Evaluation: 10/25/16 Time of Evaluation: 12:52 - Subjective Subjective: HOSPITALISTS PROGRESS NOTE Pt is seen and examined at bedside. No acute events overnight. Patient is A& Ox1 and is repetitively trying to get out of bed. Nurse is at bedside. Patient denies having any CP, abd pain, N,V,D,C. She only complains of right thigh pain. Objective - Vital Signs/Intake and Output Vital Signs (last 24 hours): Temp Pulse Resp BP Pulse Ox 97.8 F 70 22 157/70 H 98 10/25/16 08:10 10/25/16 10:15 10/25/16 08:10 10/25/16 10:17 10/25/16 08:10 - Medications Medications: Current Medications Alendronate Sodium (Fosamax) 70 mg PO QWK [facility] Alprazolam (Xanax) 0.5 mg PO BID [facility] PRN Reason: Protocol Last Admin: 10/25/16 10:12 Dose: 0.5 mg Amlodipine Besylate (Norvasc) 10 mg PO DAILY [facility] Last Admin: 10/25/16 10:17 Dose: 10 mg Atenolol (Tenormin) 25 mg PO DAILY [facility] Last Admin: 10/25/16 10:15 Dose: 25 mg Atorvastatin Calcium (Lipitor) 10 mg PO DIN [facility] Last Admin: 10/24/16 17:23 Dose: 10 mg Hydralazine HCl (Apresoline) 10 mg IVP Q6 PRN PRN Reason: Systolic Blood Pressure Sodium Chloride (Sodium Chloride 0.9%) 1,000 mls @ 100 mls/hr IV .Q10H [facility] Last Admin: 10/25/16 05:33 Dose: 100 mls/hr Ibuprofen (Motrin Tab) 400 mg PO Q6H PRN PRN Reason: Pain, moderate (4-7) Last Admin: 10/25/16 10:10 Dose: 400 mg Insulin Human Lispro (Humalog Low) 0 units SC ACHS [facility] PRN Reason: Protocol Last Admin: 10/25/16 12:21 Dose: Not Given Pantoprazole Sodium (Protonix Ec Tab) 40 mg PO DAILY [facility] Last Admin: 10/25/16 10:17 Dose: 40 mg Potassium Chloride (K-Dur 20 Meq Er Tab) 40 meq PO ONCE ONE Stop: 10/25/16 12:52 - Labs Labs: 10/25/16 07:15 10/25/16 07:15 - Constitutional Appears: Non-toxic, No Acute Distress - Head Exam Head Exam: ATRAUMATIC - Eye Exam Eye Exam: EOMI - ENT Exam ENT Exam: Mucous Membranes Moist - Respiratory Exam Respiratory Exam: Clear to Ausculation Bilateral. absent: Accessory Muscle Use , Rales, Rhonchi, Wheezes, Respiratory Distress - Cardiovascular Exam Cardiovascular Exam: REGULAR RHYTHM, +S1, +S2. absent: Gallop, Rubs, Murmur - GI/Abdominal Exam GI & Abdominal Exam: Soft, Normal Bowel Sounds. absent: Distended, Firm, Guarding, Rigid, Tenderness - Extremities Exam Extremities Exam: absent: Pedal Edema, Tenderness - Neurological Exam Neurological Exam: Alert, Awake. absent: Oriented x3 - Psychiatric Exam Psychiatric exam: Normal Affect, Normal Mood - Skin Skin Exam: Dry, Intact, Normal Color, Warm Assessment and Plan - Assessment and Plan (Free Text) Assessment: 81 yo female with PMH of polio s/p left weakness, cataract, HTN, HLD, asthma, anxiety, DM and dementia is admitted for diarrhea and abd pain. Plan: 1. HTN - atenolol 25mg daily - norvasc 10mg daily - hydralazine 10 PRN - cont to monitor 2. diarrhea and abd pain - improved - IVF NS @100 - cont to monitor 3. DM - hold home medication - lispro ISS- low - Fingersticks ACHS 4. anxiety - cont home med xanax 0.5 BID prn 5. HLD - cont home med lipitor ppx GI- protonix DVT- SCDs Patient is DNR/DNI Case discussed with attending, Dr. Lin <Lex Lin - Last Filed: 10/25/16 17:53> Objective - Vital Signs/Intake and Output Vital Signs (last 24 hours): Temp Pulse Resp BP Pulse Ox 97.7 F 73 22 170/80 H 97 10/25/16 16:04 10/25/16 16:04 10/25/16 16:04 10/25/16 16:04 10/25/16 16:04 - Medications Medications: Current Medications Alendronate Sodium (Fosamax) 70 mg PO QWK [facility] Alprazolam (Xanax) 0.5 mg PO BID [facility] PRN Reason: Protocol Last Admin: 10/25/16 10:12 Dose: 0.5 mg Amlodipine Besylate (Norvasc) 10 mg PO DAILY [facility] Last Admin: 10/25/16 10:17 Dose: 10 mg Atenolol (Tenormin) 25 mg PO DAILY [facility] Last Admin: 10/25/16 10:15 Dose: 25 mg Atorvastatin Calcium (Lipitor) 10 mg PO DIN [facility] Last Admin: 10/24/16 17:23 Dose: 10 mg Hydralazine HCl (Apresoline) 10 mg IVP Q6 PRN PRN Reason: Systolic Blood Pressure Sodium Chloride (Sodium Chloride 0.9%) 1,000 mls @ 100 mls/hr IV .Q10H [facility] Last Admin: 10/25/16 05:33 Dose: 100 mls/hr Ibuprofen (Motrin Tab) 400 mg PO Q6H PRN PRN Reason: Pain, moderate (4-7) Last Admin: 10/25/16 10:10 Dose: 400 mg Insulin Human Lispro (Humalog Low) 0 units SC ACHS [facility] PRN Reason: Protocol Last Admin: 10/25/16 12:21 Dose: Not Given Lorazepam (Ativan) 0.5 mg IVP Q4 PRN; Protocol PRN Reason: Anxiety Pantoprazole Sodium (Protonix Ec Tab) 40 mg PO DAILY [facility] Last Admin: 10/25/16 10:17 Dose: 40 mg - Labs Labs: 10/25/16 07:15 10/25/16 07:15 Attending/Attestation - Attestation I have personally seen and examined this patient.: Yes I have fully participated in the care of the patient.: Yes I have reviewed all pertinent clinical information, including history, physical exam and plan: Yes Notes (Text): 10/25/16 17:50 attending note; Patient seen and examined with the resident. Patient is a 81-year-old female admitted with diarrhea. Patient with a past medical history of dementia,fall, polio and Left leg weakness. no diarrhea since admission. Patient is tolerating diet well. Hypokalemia; continue by mouth and IV potassium supplementation. Dementia; agitation on and off. Vest [place] to avoid injury. Psychiatric evaluation requested. case discussed with case preparer and liner in detail yesterday. Plan for long-term placement. the patient will follow-up with PMD Dr. Mooney.
[2016-10-26 08:00] LABS: ADD MANUAL DIFF? NO
[2016-10-26 08:12] LABS: BASO # 0.03 K/mm3 (0.0-2.0); BASO % 0.2 % (0.0-3.0); EOS # 0.1 (0.0-0.7); EOS % 0.6 % (1.5-5.0); GRAN # 13.87 (1.4-6.5); GRAN % 86.5 % (50.0-68.0); HEMATOCRIT 39.4 % (36.0-48.0); LYMPH # 1.2 (1.2-3.4); LYMPH % 7.6 % (22.0-35.0); MEAN CELL VOLUME 91.8 fL (80.0-105.0); MEAN CORPUSCULAR HEMOGLOBIN 31.5 pg (25.0-35.0); MEAN CORPUSCULAR HGB CONC 34.3 g/dl (31.0-37.0); MEAN PLATELET VOLUME 10.3 fl (7.0-11.0); MONO # 0.8 (0.1-0.6); MONO % 5.1 % (1.0-6.0); PLATELET COUNT 276 10^3/uL (120.0-450.0); RED CELL DISTRIBUTION WIDTH 13.1 % (11.5-14.5)
[2016-10-26] MEDS: Insulin Lispro (humaLOG) LOW Coverage SC SCH ×4 (08:21→21:34)
[2016-10-26 08:22] LABS: ALB/GLOB RATIO 1.1 (1.1-1.8); ALKALINE PHOSPHATASE 141 U/L (38-133); ALT/SGPT 33 U/L (7-56); AST/SGOT 29 U/L (15-39); BLOOD UREA NITROGEN 9 mg/dL (7-21); CARBON DIOXIDE 24 mmol/L (21-33); CHLORIDE 107 mmol/L (95-110); GFR AFRICAN-AMERICAN > 60; GLUCOSE,RANDOM 150 mg/dL (70-110); POTASSIUM 4.6 mmol/L (3.6-5.0); SODIUM 142 mmol/L (132-148); TOTAL PROTEIN 7.5 g/dL (5.8-8.3)
[2016-10-26] MEDS: Pantoprazole 40 mg EC Tab PO SCH (11:01)
--- NOTE | 2016-10-26 15:46 | CP.PCM.PN ---
<Priscilla Daugherty - Last Filed: 10/26/16 15:43> Subjective - Date & Time of Evaluation Date of Evaluation: 10/26/16 Time of Evaluation: 15:43 - Subjective Subjective: HOSPITALISTS PROGRESS NOTE Pt is seen and examined. No acute events overnight. Patient is agitated this morning but later in the day when daughter is visiting, patient is more relaxed and calm. Patient denies having any CP, SOB, abd pain. Patient is tolerating diet. Objective - Vital Signs/Intake and Output Vital Signs (last 24 hours): Temp Pulse Resp BP Pulse Ox 98.9 F 75 22 160/75 H 99 10/26/16 08:16 10/26/16 11:00 10/26/16 08:16 10/26/16 11:01 10/26/16 08:16 Intake and Output: 10/26/16 10/26/16 06:59 18:59 Intake Total 120 Balance 120 - Medications Medications: Current Medications Alendronate Sodium (Fosamax) 70 mg PO QWK [facility] Alprazolam (Xanax) 0.5 mg PO BID [facility] PRN Reason: Protocol Last Admin: 10/26/16 11:00 Dose: 0.5 mg Amlodipine Besylate (Norvasc) 10 mg PO DAILY [facility] Last Admin: 10/26/16 11:01 Dose: 10 mg Atenolol (Tenormin) 25 mg PO DAILY [facility] Last Admin: 10/26/16 11:00 Dose: 25 mg Atorvastatin Calcium (Lipitor) 10 mg PO DIN [facility] Last Admin: 10/25/16 18:37 Dose: Not Given Haloperidol Lactate (Haldol) 0.25 mg IVP Q6 PRN; Protocol PRN Reason: Agitation Hydralazine HCl (Apresoline) 10 mg IVP Q6 PRN PRN Reason: Systolic Blood Pressure Ibuprofen (Motrin Tab) 400 mg PO Q6H PRN PRN Reason: Pain, moderate (4-7) Last Admin: 10/25/16 10:10 Dose: 400 mg Insulin Human Lispro (Humalog Low) 0 units SC ACHS [facility] PRN Reason: Protocol Last Admin: 10/26/16 12:44 Dose: 2 units Pantoprazole Sodium (Protonix Ec Tab) 40 mg PO DAILY [facility] Last Admin: 10/26/16 11:01 Dose: 40 mg - Labs Labs: 10/26/16 07:58 10/26/16 07:58 - Constitutional Appears: Non-toxic, No Acute Distress - Head Exam Head Exam: ATRAUMATIC - Eye Exam Eye Exam: EOMI - ENT Exam ENT Exam: Mucous Membranes Moist - Respiratory Exam Respiratory Exam: Clear to Ausculation Bilateral, NORMAL BREATHING PATTERN. absent: Accessory Muscle Use, Rales, Rhonchi, Wheezes, Respiratory Distress - Cardiovascular Exam Cardiovascular Exam: REGULAR RHYTHM, +S1, +S2. absent: Gallop, Rubs, Murmur - GI/Abdominal Exam GI & Abdominal Exam: Soft, Normal Bowel Sounds. absent: Distended, Firm, Guarding, Rigid, Tenderness - Extremities Exam Extremities Exam: absent: Pedal Edema, Tenderness - Neurological Exam Neurological Exam: Alert, Awake. absent: Oriented x3 - Psychiatric Exam Psychiatric exam: Anxious - Skin Skin Exam: Dry, Intact, Normal Color, Warm Assessment and Plan - Assessment and Plan (Free Text) Assessment: 81 yo female with PMH of polio s/p left weakness, cataract, HTN, HLD, asthma, anxiety, DM and dementia is admitted for diarrhea and abd pain. Plan: 1. HTN - Stable - atenolol 25mg daily - norvasc 10mg daily - hydralazine 10 PRN - cont to monitor 2. diarrhea and abd pain - improved - cont to monitor 3. DM - hold home medication - lispro ISS- low - Fingersticks ACHS 4. anxiety - cont home med xanax 0.5 BID 5. HLD - cont home med lipitor 6. hypokalemia - resolved 7. leukocytosis - Will repeat CBC in am and get procal ppx GI- protonix DVT- SCDs Patient is DNR/DNI Case discussed with attending, Dr. Lin <Lex Lin - Last Filed: 10/26/16 16:07> Objective - Vital Signs/Intake and Output Vital Signs (last 24 hours): Temp Pulse Resp BP Pulse Ox 98.9 F 75 22 160/75 H 99 10/26/16 08:16 10/26/16 11:00 10/26/16 08:16 10/26/16 11:01 10/26/16 08:16 Intake and Output: 10/26/16 10/26/16 06:59 18:59 Intake Total 120 Balance 120 - Medications Medications: Current Medications Alendronate Sodium (Fosamax) 70 mg PO QWK [facility] Alprazolam (Xanax) 0.5 mg PO BID [facility] PRN Reason: Protocol Last Admin: 10/26/16 11:00 Dose: 0.5 mg Amlodipine Besylate (Norvasc) 10 mg PO DAILY [facility] Last Admin: 10/26/16 11:01 Dose: 10 mg Atenolol (Tenormin) 25 mg PO DAILY [facility] Last Admin: 10/26/16 11:00 Dose: 25 mg Atorvastatin Calcium (Lipitor) 10 mg PO DIN [facility] Last Admin: 10/25/16 18:37 Dose: Not Given Haloperidol Lactate (Haldol) 0.25 mg IVP Q6 PRN; Protocol PRN Reason: Agitation Hydralazine HCl (Apresoline) 10 mg IVP Q6 PRN PRN Reason: Systolic Blood Pressure Ibuprofen (Motrin Tab) 400 mg PO Q6H PRN PRN Reason: Pain, moderate (4-7) Last Admin: 10/25/16 10:10 Dose: 400 mg Insulin Human Lispro (Humalog Low) 0 units SC ACHS [facility] PRN Reason: Protocol Last Admin: 10/26/16 12:44 Dose: 2 units Pantoprazole Sodium (Protonix Ec Tab) 40 mg PO DAILY [facility] Last Admin: 10/26/16 11:01 Dose: 40 mg - Labs Labs: 10/26/16 07:58 10/26/16 07:58 Attending/Attestation - Attestation I have personally seen and examined this patient.: Yes I have fully participated in the care of the patient.: Yes I have reviewed all pertinent clinical information, including history, physical exam and plan: Yes Notes (Text): 10/26/16 16:05 attending note; Patient seen and examined with the resident. Patient is a 81-year-old female admitted with diarrhea. Patient with a past medical history of dementia,fall, polio and Left leg weakness. no diarrhea since admission. Patient is tolerating diet well. Hypokalemia; resolved. WBC elevated; Patient is afebrile and nontoxic. urine culture is negative. no diarrhea. Follow up closely. Dementia; agitation on and off. Vest [place] to avoid injury. Psychiatric evaluation appreciated. on haldol prn. case discussed with case coordinator in detail. Plan for long-term placement. the patient will follow-up with PMD Dr. Mooney.
--- NOTE | 2016-10-27 07:36 | CON ---
DATE: 10/26/2016 The patient is an 81-year-old female with a psychiatric history of anxiety, as well as dementia who p resented to the Emergency Room with complaints of diarrhea and abdominal pain. Psychiatry was consul rl on the patient due to the patient's agitation on the unit likely secondary to dementia. I reviewed prior records, which indicated the patient has never been seen by psychiatry on the [facility] or in the consultation service. I also reviewed recent notes on the unit, which indicate th e patient has been restless, biting her IV, yelling incoherently and illogically "police" on the [facility] floor. The patient required Geodon and Ativan p.r.n. yesterday due to her behavior, which precip itated the request for psychiatric review. I met with the patient at bedside and required a health information coder, as this provider had a lot of d ifficulty obtaining her attention and cooperation for an assessment. However, introduction of a [facility] crane mechanic provided very few additional information. The patient is completely disoriented. Naehed davis does not know where she is or month or year it is. She responds with "I don't know" to the overal l majority of questions that are posed to her. PAST MEDICAL HISTORY: I attempted to review her past history, which can fallibly be elicited in most cases. However, the patient does not know where she was born. She not know where she was raised. She does not know whether she is or has any children. The patient does report that she lives alone, which is corroborated by prior notes, including her daughter who indicated that the patient l arslan alone. However, her compliance with medications is unknown. Regarding the patient's current mood symptoms, the patient denies feeling sad or suicidal. Due to he r mental status limitation, she is unable to understand or respond to questions about hallucinations. The patient is in wrist restraints, and she is able to communicate that she is unhappy about the wr ist restraints, however, does not respond to reassurance and redirection or questioning her cooperati on with staff members. The patient also does not respond in any significant way when I orient her to current circumstances, month and year. She does report that she does not have any pain at this poin t. She does not appear to be in any major discomfort. Nonetheless, her thought process is notably _ ___ and disoriented, and obviously forgetful. Her insight and judgment are considered to be poor. I mpulse control is considered to be poor as well. SOCIAL HISTORY: As per HPI, the patient is not able to respond to the majority of questions posed to her. She does indicate that she lives alone, which is consistent with what her daughter provided in the Emergency Room. PSYCHIATRIC HISTORY: The patient denies any psychiatric history. However, she is a poor historian. Nonetheless, superficial review of [facility] records indicate that she has never been h ospitalized or seen on the consultation service before and that she has a diagnosis of dementia. VITAL SIGNS: Reviewed by this provider. At 8:16 a.m. this morning, they are 98.9, 75, 160/75, and 2 2. They have been elevated since she arrived on the unit. MEDICATIONS: None. LABORATORY DATA: Results are reviewed, and the patient does have an elevated white count of 16. H a nd H are within normal limits today. Platelets are also within normal limits. Chemistry profile is within normal limits this morning except for a random glucose of 150, alk phos of elevated at 141. RELEVANT PSYCHIATRIC MEDICATIONS: Include Xanax 0.5 mg p.o. b.i.d. scheduled. Of note, the patient received Ativan 0.5 mg IV 1 dose and Geodon 20 mg IM stat 1 dose last night. IMPRESSION: Delirium operating in the background of dementia, anxiety disorder as per history. RECOMMENDATIONS: I would not recommend low-dose p.r.n. medication due to the patient's current disor ientation, which likely has been exacerbated by a delirium process. I will start Haldol 0.25 mg q. 6 p.r.n., and psychiatry will continue to monitor her behavior and tolerance to the medication. Suraj nue Xanax 0.5 mg b.i.d., as this does not appear to be affecting her functioning or mental status at this time. Please note that this provider has started Haldol at a very conservative dose due to the patient's age and medical comorbidities at this time. We will titrate as necessary. Kady Cardona MD cc: [id number] TT: 10/26/2016 10:47:55 Confirmation # [id number] Dictation # [id number] 10/27/2016 06:35:01
[2016-10-27 08:12] LABS: BLOOD UREA NITROGEN 17 mg/dL (7-21); CALCIUM 8.7 mg/dL (8.4-10.5); CARBON DIOXIDE 26 mmol/L (21-33); CHLORIDE 105 mmol/L (95-110); GFR AFRICAN-AMERICAN > 60; GLUCOSE,RANDOM 136 mg/dL (70-110); POTASSIUM 3.9 mmol/L (3.6-5.0); SODIUM 138 mmol/L (132-148)
[2016-10-27] MEDS: Insulin Lispro (humaLOG) LOW Coverage SC SCH ×4 (08:26→21:37)
[2016-10-27 09:32] LABS: HEMATOCRIT 38.3 % (36.0-48.0); MEAN CELL VOLUME 91.2 fL (80.0-105.0); MEAN CORPUSCULAR HEMOGLOBIN 31.4 pg (25.0-35.0); MEAN CORPUSCULAR HGB CONC 34.5 g/dl (31.0-37.0); MEAN PLATELET VOLUME 10.5 fl (7.0-11.0); RED CELL DISTRIBUTION WIDTH 13.1 % (11.5-14.5)
[2016-10-27] MEDS: Pantoprazole 40 mg EC Tab PO SCH (11:28)
--- NOTE | 2016-10-27 13:44 | CP.PCM.PN ---
<Cara Vizcarra - Last Filed: 10/27/16 13:50> Subjective - Date & Time of Evaluation Date of Evaluation: 10/27/16 Time of Evaluation: 07:00 - Subjective Subjective: Pt was seen and examined at bedside. Pt is somnolent yet arousable on account of recent haldol administration. As per nursing staff, pt became agitated overnight and required haldol, successfully calming the patient down. Pt is on a kelli vest for pt safety. She has no acute complaints at this time and is able to respond to name, however is otherwise disorientated as to time and place. ROS unable to be obtained on account of pt clinical status. Objective - Vital Signs/Intake and Output Vital Signs (last 24 hours): Temp Pulse Resp BP Pulse Ox 98.4 F 94 H 20 150/70 99 10/27/16 08:00 10/27/16 11:27 10/27/16 08:00 10/27/16 11:28 10/27/16 08:00 Intake and Output: 10/27/16 10/27/16 06:59 18:59 Intake Total 180 Balance 180 - Medications Medications: Current Medications Alendronate Sodium (Fosamax) 70 mg PO [facility]WK [facility] Alprazolam (Xanax) 0.5 mg PO BID [facility] PRN Reason: Protocol Last Admin: 10/27/16 11:28 Dose: 0.5 mg Amlodipine Besylate (Norvasc) 10 mg PO DAILY [facility] Last Admin: 10/27/16 11:28 Dose: 10 mg Atenolol (Tenormin) 25 mg PO DAILY [facility] Last Admin: 10/27/16 11:27 Dose: 25 mg Atorvastatin Calcium (Lipitor) 10 mg PO DIN [facility] Last Admin: 10/26/16 18:16 Dose: 10 mg Hydralazine HCl (Apresoline) 10 mg IVP Q6 PRN PRN Reason: Systolic Blood Pressure Ibuprofen (Motrin Tab) 400 mg PO Q6H PRN PRN Reason: Pain, moderate (4-7) Last Admin: 10/25/16 10:10 Dose: 400 mg Insulin Human Lispro (Humalog Low) 0 units SC ACHS [facility] PRN Reason: Protocol Last Admin: 10/27/16 13:18 Dose: Not Given Pantoprazole Sodium (Protonix Ec Tab) 40 mg PO DAILY [facility] Last Admin: 10/27/16 11:28 Dose: 40 mg Quetiapine Fumarate (Seroquel) 12.5 mg PO HS [facility] PRN Reason: Protocol - Labs Labs: 10/27/16 09:10 10/27/16 06:00 - Constitutional Appears: Well, No Acute Distress - Head Exam Head Exam: ATRAUMATIC, NORMAL INSPECTION, NORMOCEPHALIC - Eye Exam Eye Exam: EOMI, Normal appearance, PERRL - ENT Exam ENT Exam: Mucous Membranes Moist, Normal Exam - Respiratory Exam Respiratory Exam: Clear to Ausculation Bilateral, NORMAL BREATHING PATTERN - Cardiovascular Exam Cardiovascular Exam: REGULAR RHYTHM, +S1, +S2. absent: Murmur - GI/Abdominal Exam GI & Abdominal Exam: Soft, Normal Bowel Sounds. absent: Tenderness - Extremities Exam Extremities Exam: Full ROM, Normal Capillary Refill, Normal Inspection. absent : Joint Swelling, Pedal Edema - Neurological Exam Neurological Exam: Altered, Awake, CN II-XII Intact, Oriented x3 - Psychiatric Exam Psychiatric exam: Normal Affect, Normal Mood - Skin Skin Exam: Dry, Intact, Normal Color, Warm Assessment and Plan - Assessment and Plan (Free Text) Assessment: 81 F with PMHx of polio s/p left weakness, cataract, HTN, HLD, asthma, anxiety, DM and dementia is admitted for diarrhea and abdominal pain. 1. HTN - Stable - atenolol 25mg daily - norvasc 10mg daily - hydralazine 10 PRN - continue to monitor 2. Diarrhea and abdominal pain - improved, no further episodes of diarrhea - cont to monitor 3. DM - hold home medication - lispro ISS- low - Fingersticks ACHS 4. anxiety - continue home med xanax 0.5 BID - Psych following pt on account of overnight agitation, will change holdol to seroquel - Kelli vest for pt safety 5. HLD - lipitor GI- protonix DVT- SCDs Patient is DNR/DNI We will observe pt with new changes to meds as per Psych and reassess for possible discharge if stable and not requiring restraints. Plan for long-term placement. Will need fu with PMD Dr. Mooney upon dc. Seen reviewed and discussed with attending. <Keaton Padilla - Last Filed: 10/28/16 15:54> Objective - Vital Signs/Intake and Output Vital Signs (last 24 hours): Temp Pulse Resp BP Pulse Ox 97.3 F L 64 18 149/89 97 10/28/16 08:00 10/28/16 09:40 10/28/16 08:00 10/28/16 09:41 10/28/16 08:00 Intake and Output: 10/28/16 10/28/16 06:59 18:59 Intake Total 620 360 Balance 620 360 - Medications Medications: Current Medications Alendronate Sodium (Fosamax) 70 mg PO QWK [facility] Alprazolam (Xanax) 0.5 mg PO BID [facility] PRN Reason: Protocol Last Admin: 10/28/16 10:03 Dose: Not Given Amlodipine Besylate (Norvasc) 10 mg PO DAILY [facility] Last Admin: 10/28/16 09:41 Dose: 10 mg Atenolol (Tenormin) 25 mg PO DAILY [facility] Last Admin: 10/28/16 09:40 Dose: 25 mg Atorvastatin Calcium (Lipitor) 10 mg PO DIN [facility] Last Admin: 10/27/16 17:07 Dose: 10 mg Docusate Sodium (Colace) 100 mg PO BID [facility] Hydralazine HCl (Apresoline) 10 mg IVP Q6 PRN PRN Reason: Systolic Blood Pressure Ibuprofen (Motrin Tab) 400 mg PO Q6H PRN PRN Reason: Pain, moderate (4-7) Last Admin: 10/25/16 10:10 Dose: 400 mg Insulin Human Lispro (Humalog Low) 0 units SC ACHS [facility] PRN Reason: Protocol Last Admin: 10/28/16 12:11 Dose: 1 units Pantoprazole Sodium (Protonix Ec Tab) 40 mg PO DAILY [facility] Last Admin: 10/28/16 09:40 Dose: 40 mg Quetiapine Fumarate (Seroquel) 12.5 mg PO HS [facility] PRN Reason: Protocol Last Admin: 10/27/16 21:35 Dose: 12.5 mg - Labs Labs: 10/28/16 07:00 10/28/16 07:00 Attending/Attestation - Attestation I have personally seen and examined this patient.: Yes I have fully participated in the care of the patient.: Yes I have reviewed all pertinent clinical information, including history, physical exam and plan: Yes Notes (Text): I have seen and examined the patient at bedside. Agree with the above note with the following additions/ exceptions: This is 81 year old female with history of dementia, multiple falls, polio, left leg weakness who got admitted for evaluation of diarrhea which has resolved. Patient has been tolerating her diet. Hypokalemia has resolved. She had leukocytosis yesterday however she is afebrile and non toxic. Urine culture is negative. CXR negative. She has been getting agitation on and off. Continue vest kelli for now. Upon discharge patient will follow up with Dr Mooney. Dr Keaton Padilla
--- NOTE | 2016-10-27 14:59 | RAD ---
HISTORY: r/o infiltrate COMPARISON: 07/14/2016. FINDINGS: LUNGS: The lungs are well inflated and clear. PLEURA: No significant pleural effusion identified, no pneumothorax apparent. CARDIOVASCULAR: Normal. OSSEOUS STRUCTURES: No significant abnormalities. VISUALIZED UPPER ABDOMEN: Normal. OTHER FINDINGS: None. IMPRESSION: No active pulmonary disease.
--- NOTE | 2016-10-27 17:33 | PN ---
DATE: 10/27/2016 Shortly, the patient is an 81-year-old female with history of dementia. The patient has mul tiple medical problems including history of polio, status post left leg weakness, cataracts, hyperten ani, dyslipidemia, asthma, anxiety. The patient was admitted to the medical floor for diarrhea. [facility] consult was called for evaluation of agitated behavior and confusion. The patient was seen and e xamined today. The patient presented to be confused. The patient complained of visual hallucination s well-formed. The patient has some upper extremity stiffness. The patient was on Xanax back home. The patient was seen by Dr. Cardona. Haloperidol 0.25 mg IV push q. 6 hours was started. The patient also had leukocytosis. WBC was 16.0, today is 9.0. Chemistry also reviewed. Urinalysis shows blood trace. Reports reviewed. The patient was agitated earlier and needed to be in restraints, bu t at the moment of her interview the patient has a waist [place]. The patient was oriented to only in herself, not in time and place. The patient does not know the ci rcumstances of her admission to the medical side. This rfp writer reviewed the notes from the social ser vices and medical team. The patient was not able to take care of herself. The patient lives indepen dently. MENTAL STATUS EXAMINATION: The patient appears to be confused, but alert, oriented in self only. Sp eech was random, incoherent. Thought process is disorganized. Mood described as okay. Affect: The patient is smiling inappropriately, earlier was agitated and needed to be in restraints. The patien t denied thoughts of harming herself or others, but obviously has episodes of confusion and aggressio n. The patient complained of visual hallucinations. IMPRESSION: The patient has dementia. The patient has upper extremity stiffness and visual hallucin ations. This rfp writer would like to rule out Lewy body dementia, rule out delirium on dementia. PLAN: Continue current management. This rfp writer discontinued haloperidol. Will initiate Seroquel 12 .5 mg at the nighttime for confusion and agitation. Neurology consult recommended. Please continue monitoring. Will follow up and advise accordingly. Please continue Xanax as needed for anxiety and agitation. Family involvement. Most likely the patient needs to have placement because patient was living independently, obviously was not able to take care of herself. We will follow up and advise a ccordingly. Should you have any questions, give me a call back. Mariely Davis MD cc: [id number] TT: 10/27/2016 17:32:53 Confirmation # [id number] Dictation # [id number] mn
[2016-10-28 07:15] LABS: ADD MANUAL DIFF? NO
[2016-10-28 07:26] LABS: BASO # 0.04 K/mm3 (0.0-2.0); BASO % 0.5 % (0.0-3.0); EOS # 0.5 (0.0-0.7); GRAN # 5.01 (1.4-6.5); GRAN % 57.8 % (50.0-68.0); HEMATOCRIT 40.5 % (36.0-48.0); LYMPH # 2.5 (1.2-3.4); LYMPH % 28.5 % (22.0-35.0); MEAN CELL VOLUME 93.1 fL (80.0-105.0); MEAN CORPUSCULAR HGB CONC 33.3 g/dl (31.0-37.0); MEAN PLATELET VOLUME 10.3 fl (7.0-11.0); MONO # 0.6 (0.1-0.6); MONO % 7.2 % (1.0-6.0); PLATELET COUNT 268 10^3/uL (120.0-450.0); RED CELL DISTRIBUTION WIDTH 13.1 % (11.5-14.5); WHITE BLOOD COUNT 8.7 10^3/ul (4.5-11.0)
--- NOTE | 2016-10-28 07:39 | CP.PCM.PN ---
<Cara Vizcarra - Last Filed: 10/28/16 13:27> Subjective - Date & Time of Evaluation Date of Evaluation: 10/28/16 Time of Evaluation: 06:50 - Subjective Subjective: Pt was seen and examined at bedside. No acute complaints at this time. As per nursing staff, pt has been off kelil since yesterday afternoon and hasn't required restraints since that time. Pt has slept through the night and is tolerating new medical management well. Pt denied fever, chills, chest pains, sob, abdominal pains, n/v/d/c, or any urinary symptoms. Objective - Vital Signs/Intake and Output Vital Signs (last 24 hours): Temp Pulse Resp BP Pulse Ox 97.5 F L 66 16 139/70 98 10/27/16 16:00 10/27/16 16:00 10/27/16 16:00 10/27/16 16:00 10/27/16 16:00 Intake and Output: 10/28/16 10/28/16 06:59 18:59 Intake Total 620 Balance 620 - Medications Medications: Current Medications Alendronate Sodium (Fosamax) 70 mg PO QWK [facility] Alprazolam (Xanax) 0.5 mg PO BID [facility] PRN Reason: Protocol Last Admin: 10/27/16 21:35 Dose: 0.5 mg Amlodipine Besylate (Norvasc) 10 mg PO DAILY [facility] Last Admin: 10/27/16 11:28 Dose: 10 mg Atenolol (Tenormin) 25 mg PO DAILY [facility] Last Admin: 10/27/16 11:27 Dose: 25 mg Atorvastatin Calcium (Lipitor) 10 mg PO DIN [facility] Last Admin: 10/27/16 17:07 Dose: 10 mg Hydralazine HCl (Apresoline) 10 mg IVP Q6 PRN PRN Reason: Systolic Blood Pressure Ibuprofen (Motrin Tab) 400 mg PO Q6H PRN PRN Reason: Pain, moderate (4-7) Last Admin: 10/25/16 10:10 Dose: 400 mg Insulin Human Lispro (Humalog Low) 0 units SC ACHS [facility] PRN Reason: Protocol Last Admin: 10/27/16 21:37 Dose: Not Given Pantoprazole Sodium (Protonix Ec Tab) 40 mg PO DAILY [facility] Last Admin: 10/27/16 11:28 Dose: 40 mg Quetiapine Fumarate (Seroquel) 12.5 mg PO HS [facility] PRN Reason: Protocol Last Admin: 10/27/16 21:35 Dose: 12.5 mg - Labs Labs: 10/28/16 07:00 10/27/16 06:00 - Constitutional Appears: Well, No Acute Distress - Head Exam Head Exam: ATRAUMATIC, NORMAL INSPECTION, NORMOCEPHALIC - Eye Exam Eye Exam: EOMI, Normal appearance, PERRL Pupil Exam: NORMAL ACCOMODATION, PERRL - ENT Exam ENT Exam: Mucous Membranes Moist, Normal Exam - Respiratory Exam Respiratory Exam: Clear to Ausculation Bilateral, NORMAL BREATHING PATTERN - Cardiovascular Exam Cardiovascular Exam: REGULAR RHYTHM, +S1, +S2. absent: Murmur - GI/Abdominal Exam GI & Abdominal Exam: Soft, Normal Bowel Sounds. absent: Tenderness - Extremities Exam Extremities Exam: Full ROM, Normal Capillary Refill, Normal Inspection. absent : Joint Swelling, Pedal Edema - Neurological Exam Neurological Exam: Alert, Awake, CN II-XII Intact, Oriented x3 - Psychiatric Exam Psychiatric exam: Normal Affect, Normal Mood - Skin Skin Exam: Dry, Intact, Normal Color, Warm Assessment and Plan - Assessment and Plan (Free Text) Assessment: 81 F with PMHx of polio s/p left weakness, cataract, HTN, HLD, asthma, anxiety, DM and dementia is admitted for diarrhea and abdominal pain. 1. HTN - Stable - atenolol 25mg daily - norvasc 10mg daily - hydralazine 10 PRN - continue to monitor 2. Diarrhea and abdominal pain - improved, no further episodes of diarrhea - cont to monitor 3. DM - hold home medication - lispro ISS- low - Fingersticks ACHS 4. anxiety - continue home med xanax 0.5 BID - Psych following pt on account of overnight agitation, will change holdol to seroquel - Brooke vest for pt safety - has been off since 1pm yesterday. Tolerating seroquel well overnight. - Neurology consulted at the recommendation of psychiatry, Dr. Oleg Hernandez 5. HLD - lipitor GI- protonix DVT- SCDs Patient is DNR/DNI Pending Neuro recs, possible discharge if stable and not requiring restraints. Plan for long-term placement. Will need fu with PMD Dr. Mooney upon dc. Seen reviewed and discussed with attending. <Keaton Padilla Ravindra - Last Filed: 10/29/16 07:34> Objective - Vital Signs/Intake and Output Vital Signs (last 24 hours): Temp Pulse Resp BP Pulse Ox 98.4 F 71 18 125/60 99 10/28/16 16:00 10/28/16 16:00 10/28/16 16:00 10/28/16 16:00 10/28/16 16:00 Intake and Output: 10/29/16 10/29/16 06:59 18:59 Intake Total 720 Output Total 500 Balance 220 - Medications Medications: Current Medications Alendronate Sodium (Fosamax) 70 mg PO QWK [facility] Alprazolam (Xanax) 0.5 mg PO Q12 [facility] PRN Reason: Protocol Last Admin: 10/28/16 21:55 Dose: 0.5 mg Amlodipine Besylate (Norvasc) 10 mg PO DAILY [facility] Last Admin: 10/28/16 09:41 Dose: 10 mg Atenolol (Tenormin) 25 mg PO DAILY [facility] Last Admin: 10/28/16 09:40 Dose: 25 mg Atorvastatin Calcium (Lipitor) 10 mg PO DIN [facility] Last Admin: 10/28/16 18:11 Dose: 10 mg Docusate Sodium (Colace) 100 mg PO BID [facility] Last Admin: 10/28/16 18:11 Dose: 100 mg Hydralazine HCl (Apresoline) 10 mg IVP Q6 PRN PRN Reason: Systolic Blood Pressure Ibuprofen (Motrin Tab) 400 mg PO Q6H PRN PRN Reason: Pain, moderate (4-7) Last Admin: 10/25/16 10:10 Dose: 400 mg Insulin Human Lispro (Humalog Low) 0 units SC ACHS [facility] PRN Reason: Protocol Last Admin: 10/29/16 06:21 Dose: Not Given Pantoprazole Sodium (Protonix Ec Tab) 40 mg PO DAILY [facility] Last Admin: 10/28/16 09:40 Dose: 40 mg Quetiapine Fumarate (Seroquel) 12.5 mg PO HS [facility] PRN Reason: Protocol Last Admin: 10/28/16 21:55 Dose: 12.5 mg - Labs Labs: 10/28/16 07:00 10/28/16 07:00 Attending/Attestation - Attestation I have personally seen and examined this patient.: Yes I have fully participated in the care of the patient.: Yes I have reviewed all pertinent clinical information, including history, physical exam and plan: Yes Notes (Text): I have seen and examined the patient at bedside. Agree with the above note with the following additions/ exceptions: This is 81 year old female with history of dementia, multiple falls, polio, left leg weakness who got admitted for evaluation of diarrhea which has resolved. Patient has been tolerating her diet. Hypokalemia has resolved. She had leukocytosis which has resolved now. Patient is afebrile and non toxic. Urine culture is negative. CXR negative. Patient was able to sleep thru the night. There was no episodes of agitation noted. Vest kelli has been off. There was a suspicion of lewy body dementia as she had visual hallucinations however as per neuro most likely her symptoms are secondary to delirium due to underlying dementia. Upon discharge patient will follow up with Dr Mooney. Dr Keaton Padilla
[2016-10-28] MEDS: Insulin Lispro (humaLOG) LOW Coverage SC SCH ×3 (08:09→17:03)
[2016-10-28 08:10] LABS: ALKALINE PHOSPHATASE 104 U/L (38-133); ALT/SGPT 26 U/L (7-56); AST/SGOT 22 U/L (15-39); BILIRUBIN,TOTAL 0.6 mg/dL (0.2-1.3); BLOOD UREA NITROGEN 24 mg/dL (7-21); CALCIUM 8.7 mg/dL (8.4-10.5); CARBON DIOXIDE 26 mmol/L (21-33); CHLORIDE 104 mmol/L (98-107); GFR AFRICAN-AMERICAN > 60; GLUCOSE,RANDOM 144 mg/dL (70-110); POTASSIUM 3.9 mmol/L (3.6-5.0); SODIUM 138 mmol/L (132-148); TOTAL PROTEIN 6.7 g/dL (5.8-8.3)
[2016-10-28] MEDS: Pantoprazole 40 mg EC Tab PO SCH (09:40)
[2016-10-28 09:50] VITALS: RESP 18
--- NOTE | 2016-10-28 14:55 | PN ---
DATE: 10/28/2016 Shortly, the patient is an 81-year-old female with history of dementia. The patient has mul tiple medical issues. The patient was admitted to the medical floor for diarrhea and altered mental status. Psych consult was called for agitated behavior and confusion. The patient was seen by Dr. Dante washington over the weekend. The patient was started on haloperidol as well as Xanax. This commercial lines underwriter impleme nted Seroquel yesterday because patient has visual hallucinations and this commercial lines underwriter discontinued halope ridol. The patient tolerates his medication well, Seroquel 12.5 mg at the nighttime. The patient of panchito Singh. The patient is not needed to be in restraints. The patient is improving very much so . The patient was followed up today at the morning time. The patient presented to be alert. The pa stefan was smiling appropriately. The patient reported that her appetite is good, sleep is good and s he is a little bit upset because her daughter just left the hospital. Besides that, there are no acu te changes. Discussed with the nursing staff. The patient is in good behavioral control and does no t have agitation or aggression. This commercial lines underwriter recommended a neurology consultation yesterday because husam lewis was having mild stiffness in upper extremities and had visual hallucinations in order to rule out Lewy body dementia. Consult is pending. Vital signs are stable. MEDICATIONS: Reviewed. The patient is on Xanax 0.5 mg twice a day, Norvasc, atenolol, Lipitor, Cola ce, Protonix, Seroquel 12.5 mg at the nighttime. LABORATORY DATA: Reviewed. WBC cells 8.7. Chemistry was reviewed, BUN 24 from today. Urinalysis, the most recent was from the . MENTAL STATUS EXAMINATION: This commercial lines underwriter described above, the patient presented to be alert, pleasant and cooperative. Fair eye contact. The patient reported to be upset that her daughter left the hosp ital. Affect was reactive and mood congruent. Thought process: At times, the patient confabulates. The patient is Marshallese speaking, but able to communicate with this commercial lines underwriter and understand basic ques tions. Thought content: The patient denied visual, auditory, or tactile hallucinations. Denied par anoid ideations. The patient denied thoughts of harming herself or others, denied intent or plan. I nsight and judgment are impaired. Impulses are better predictable. IMPRESSION: Delirium on dementia. The patient is doing better. The patient is off restraints. The patient is off waist [place], pleasant, cooperative, participating in treatment plan. PLAN: Continue current management. Continue current medications. The patient is much calmer. Soci al worker is on case. Most likely the patient needs to have placement. The family is on board. Chitra nwhile, the patient presented much better to compare with the time of admission. This commercial lines underwriter will si gn off from this case. Should you have any questions, give me a call back. Mariely Davis MD cc: [id number] TT: 10/28/2016 14:54:01 Confirmation # [id number] Dictation # [id number] varun
--- NOTE | 2016-10-28 17:07 | CON ---
DATE: 10/28/2016 CHIEF COMPLAINT: Dementia and change in mental status. HISTORY OF PRESENT ILLNESS: This is an 81-year-old woman with a history of polio with status post le ft-sided weakness and shortening of the left lower extremity with spasticity, cataracts, hypertension , hyperlipidemia, anxiety, asthma, diabetes type 2, dementia who came into the hospital for abdominal pain and diarrhea. She was having constant diarrhea for the past 2 days and found to be hypertensiv e. She had episodes of agitation and confusion while she was in the hospital and transient drop in h er blood pressure systolically and diastolically. I was consulted to evaluate for dementia, Lewy bod y type. She does not have parkinsonism type features. She has a history of polio, which can cause s pasticity. She does have cognitive impairment at baseline. She was given Seroquel by psychiatry, 12 .5 at bedtime which did help her with her underlying delirium. Currently, she is doing much better. No acute events overnight. PAST MEDICAL HISTORY: History of hypertension, hyperlipidemia, anxiety, depression, type 2 diabetes mellitus, history of polio status post left-sided spastic weakness. REVIEW OF SYSTEMS: A 14-point review of systems is negative except for the HPI. SOCIAL HISTORY: No illicit drug use, smoking, or EtOH abuse. FAMILY HISTORY: Noncontributory. ALLERGIES: No known drug allergies. MEDICATIONS: Reviewed via the nurse's reconciliation sheet. PHYSICAL EXAMINATION: VITAL SIGNS: Temperature 98.4, pulse rate is 71, blood pressure of 125/60, respiratory rate of 18, o xygen saturation 99% via room air. GENERAL: The patient is sitting up in bed in no acute distress. HEENT: Atraumatic, normocephalic. PERRLA. Extraocular muscles intact. NECK: Supple, no JVD, no adenopathy noted. LUNGS: Clear to auscultation. No adventitious sounds. HEART: S1, S2, normal rate and rhythm. No murmurs, rubs, or gallops. ABDOMEN: Soft, nontender, nondistended. Bowel sounds present. EXTREMITIES: No clubbing, no cyanosis. Peripheral pulses 2+ felt bilaterally. NEUROLOGIC: The patient is alert, oriented to person, place and year. Recall after 5 minutes is 0/3 . Poor attention span, slow thought process. Denies any visual or auditory hallucinations. No para noia. Insight and judgment are impaired. Cranial nerves II-XII intact. Speech is fluent without an y errors. Motor exam: Has left-sided residual spastic weakness from polio. The right side is intac t. Slight increased tone throughout. No cogwheel rigidity at the wrists. Coordination: Finger-to- nose intact. Gait is deferred for now. Moves all extremities. Toes are downgoing bilaterally. Sens ory: Light touch, proprioception and vibration intact. DTRs are 2+ throughout and 1 at the ankles. LABORATORY DATA: Sodium is 138, potassium 3.9, chloride 104, carbon dioxide 26, BUN of 24, creatinin e 0.9 and random glucose of 195. ASSESSMENT AND PLAN: This is an 81-year-old woman with past medical history of polio status post lef t-sided spastic weakness, cataracts, hypertension, hyperlipidemia, asthma, anxiety, dementia and diab etes type 2 was admitted for diarrhea and abdominal pain. Had some confusion, agitation and question able visual hallucinations which have resolved. Her overall change in mental status is delirium seco ndary to underlying dementia. No evidence of any Lewy body type. She has spastic weakness from hist ory of polio. At this time, recommend: 1. Avoid sedating medications and nighttime interruptions. 2. Continue with home medication of Xanax 0.5 mg p.o. b.i.d. for anxiety. 3. Seroquel 12.5 mg p.o. at bedtime for agitation. 4. Avoid sudden drops in blood pressure, keep systolic above 120-130 mmHg. 5. Keep blood sugar sugars between 140-180 and continue with current present medical management. No further neurological workup needed at this time. Follow up with psychiatry. Thank you for this consult. We will sign off. Marlo Camp MD cc: [id number] TT: 10/28/2016 17:06:19 Confirmation # [id number] Dictation # [id number] mn
[2016-10-29] MEDS: Insulin Lispro (humaLOG) LOW Coverage SC SCH ×3 (06:21→12:28)
[2016-10-29 08:19] LABS: ADD MANUAL DIFF? NO
[2016-10-29 08:21] LABS: BASO # 0.04 K/mm3 (0.0-2.0); BASO % 0.5 % (0.0-3.0); EOS # 0.5 (0.0-0.7); EOS % 6.9 % (1.5-5.0); GRAN # 4.54 (1.4-6.5); GRAN % 61.2 % (50.0-68.0); HEMATOCRIT 39.1 % (36.0-48.0); LYMPH # 1.8 (1.2-3.4); MEAN CELL VOLUME 92.9 fL (80.0-105.0); MEAN CORPUSCULAR HEMOGLOBIN 31.4 pg (25.0-35.0); MEAN CORPUSCULAR HGB CONC 33.8 g/dl (31.0-37.0); MEAN PLATELET VOLUME 10.6 fl (7.0-11.0); MONO # 0.6 (0.1-0.6); MONO % 7.4 % (1.0-6.0); PLATELET COUNT 247 10^3/uL (120.0-450.0); RED CELL DISTRIBUTION WIDTH 12.9 % (11.5-14.5); WHITE BLOOD COUNT 7.4 10^3/ul (4.5-11.0)
[2016-10-29 08:31] VITALS: BP 121/60; TEMP 97.8; O2SAT 100
[2016-10-29 09:16] LABS: ALB/GLOB RATIO 0.9 (1.1-1.8); ALKALINE PHOSPHATASE 106 U/L (38-133); ALT/SGPT 27 U/L (7-56); AST/SGOT 28 U/L (15-39); BILIRUBIN,TOTAL 0.7 mg/dL (0.2-1.3); BLOOD UREA NITROGEN 17 mg/dL (7-21); CALCIUM 8.8 mg/dL (8.4-10.5); CARBON DIOXIDE 28 mmol/L (21-33); CHLORIDE 103 mmol/L (98-107); GFR AFRICAN-AMERICAN > 60; GLUCOSE,RANDOM 139 mg/dL (70-110); POTASSIUM 4.1 mmol/L (3.6-5.0); SODIUM 137 mmol/L (132-148); TOTAL PROTEIN 6.6 g/dL (5.8-8.3)
[2016-10-29] MEDS: Pantoprazole 40 mg EC Tab PO SCH (10:54)
[2016-10-29 10:58] VITALS: PULSE 85
--- NOTE | 2016-10-30 18:24 | CP.PCM.DIS ---
<Cara Vizcarra - Last Filed: 10/30/16 18:20> Provider - Provider Date of Admission: 10/23/16 21:57 Attending physician: Keaton Padilla MD Primary care physician: NO PRIMARY CARE PROVIDER Consults: Psych: [place] Palliative Care:[place] Neuro: Dr. Camp Time Spent in preparation of Discharge (in minutes): 45 Hospital Course - Lab Results Lab Results: Most Recent Lab Values WBC 7.4 10^3/ul (4.5-11.0) 10/29/16 07:00 RBC 4.21 10^6/uL (3.5-6.1) 10/29/16 07:00 Hgb 13.2 gm/dL (12.0-16.0) 10/29/16 07:00 Hct 39.1 % (36.0-48.0) 10/29/16 07:00 MCV 92.9 fL (80.0-105.0) 10/29/16 07:00 MCH 31.4 pg (25.0-35.0) 10/29/16 07:00 MCHC 33.8 g/dl (31.0-37.0) 10/29/16 07:00 RDW 12.9 % (11.5-14.5) 10/29/16 07:00 Plt Count 247 10^3/uL (120.0-450.0) 10/29/16 07:00 MPV 10.6 fl (7.0-11.0) 10/29/16 07:00 Gran % 61.2 % (50.0-68.0) 10/29/16 07:00 Lymph % (Auto) 24.0 % (22.0-35.0) 10/29/16 07:00 Rice % (Auto) 7.4 % (1.0-6.0) H 10/29/16 07:00 Eos % (Auto) 6.9 % (1.5-5.0) H 10/29/16 07:00 Baso % (Auto) 0.5 % (0.0-3.0) 10/29/16 07:00 Gran # 4.54 (1.4-6.5) 10/29/16 07:00 Lymph # 1.8 (1.2-3.4) 10/29/16 07:00 Rice # 0.6 (0.1-0.6) 10/29/16 07:00 Eos # 0.5 (0.0-0.7) 10/29/16 07:00 Baso # 0.04 K/mm3 (0.0-2.0) 10/29/16 07:00 Sodium 137 mmol/L (132-148) 10/29/16 07:00 Potassium 4.1 mmol/L (3.6-5.0) 10/29/16 07:00 Chloride 103 mmol/L (98-107) 10/29/16 07:00 Carbon Dioxide 28 mmol/L (21-33) 10/29/16 07:00 Anion Gap 10 (10-20) 10/29/16 07:00 BUN 17 mg/dL (7-21) 10/29/16 07:00 Creatinine 0.8 mg/dL (0.5-1.4) 10/29/16 07:00 Est GFR ( Amer) > 60 10/29/16 07:00 Est GFR (Non-Af Amer) > 60 10/29/16 07:00 POC Glucose (mg/dL) 163 mg/dL (65-110) H 10/29/16 07:42 Random Glucose 139 mg/dL (70-110) H 10/29/16 07:00 Calcium 8.8 mg/dL (8.4-10.5) 10/29/16 07:00 Magnesium 1.6 mg/dL (1.7-2.2) L 10/25/16 09:20 Total Bilirubin 0.7 mg/dL (0.2-1.3) 10/29/16 07:00 AST 28 U/L (15-39) 10/29/16 07:00 ALT 27 U/L (7-56) 10/29/16 07:00 Alkaline Phosphatase 106 U/L (38-133) 10/29/16 07:00 Total Protein 6.6 g/dL (5.8-8.3) 10/29/16 07:00 Albumin 3.2 g/dL (3.0-4.8) 10/29/16 07:00 Globulin 3.4 gm/dL 10/29/16 07:00 Albumin/Globulin Ratio 0.9 (1.1-1.8) L 10/29/16 07:00 Procalcitonin 0.07 NG/ML (0.19-0.49) L 10/27/16 09:10 Urine Color Yellow (YELLOW) 10/23/16 21:15 Urine Appearance Clear (CLEAR) 10/23/16 21:15 Urine pH 7.5 (4.7-8.0) 10/23/16 21:15 Ur Specific [place] 1.020 (1.005-1.035) 10/23/16 21:15 Urine Protein Negative mg/dL (<30 mg/dL) 10/23/16 21:15 Urine Glucose (UA) 500 mg/dL (NEGATIVE) H 10/23/16 21:15 Urine Ketones Negative mg/dL (NEGATIVE) 10/23/16 21:15 Urine Blood Trace-intact (NEGATIVE) H 10/23/16 21:15 Urine Nitrate Negative (NEGATIVE) 10/23/16 21:15 Urine Bilirubin Negative (NEGATIVE) 10/23/16 21:15 Urine Urobilinogen 1.0 E.U./dL (<1 E.U./dL) H 10/23/16 21:15 Ur Leukocyte Esterase Negative Carlos/uL (NEGATIVE) 10/23/16 21:15 Urine RBC 2 - 5 /hpf (0-2) 10/23/16 21:15 Urine WBC 0 - 2 /hpf (0-6) 10/23/16 21:15 Ur Epithelial Cells 3 - 4 /hpf (0-5) 10/23/16 21:15 - Hospital Course Hospital Course: 81 yo female with and advanced directive of DNR/DNI with PMH of polio s/p left weakness, cataract, HTN, HLD, asthma, anxiety, DM and dementia presents to ED with diarrhea and abd pain, found to have uncontrolled HTN in ED, admitted on 10/26/16. 1. HTN was addressed by continuing atenolol 25mg daily, and beginning norvasc 10mg daily and hydralazine 10 PRN. Pt's HTN was stable afterwards. Pt was also complaining of abdominal pains and diarrhea which had improved since admission. Pt was provided with IVF of NS at 100 ml/hr. Patient was hypokalemic. She is given KCl PO and IV. Patient mental status fluctuated usually worsening at night and becoming agitated and repetively trying to get out of bed. Pt was placed in a kelli vest for pt safety. Neurology was consulted for possibility of lewy body disease. HOwever, as per Neurology Dr. Camp no evidence of lewy body disease. Psych was also consulted and her nightime medication was switched to seroquel. Pt tolerated new medication regimen and no longer required the kelli vest and was no longer having aggitated episodes at night. Pt was subsequently evaluated for transfer to a [facility] , particularly [facility] as discussed with family and agreed upon. Pt for transfer and will follow up at [facility]. Discharge Exam - Head Exam Head Exam: ATRAUMATIC, NORMAL INSPECTION, NORMOCEPHALIC - Eye Exam Eye Exam: EOMI, Normal appearance, PERRL Pupil Exam: NORMAL ACCOMODATION, PERRL - ENT Exam ENT Exam: Mucous Membranes Moist - Respiratory Exam Respiratory Exam: Clear to PA & Lateral, NORMAL BREATHING PATTERN, UNREMARKABLE - Cardiovascular Exam Cardiovascular Exam: REGULAR RHYTHM, RRR, +S1, +S2 - GI/Abdominal Exam GI & Abdominal Exam: Normal Bowel Sounds - Extremities Exam Extremities exam: normal capillary refill - Neurological Exam Neurological exam: Alert, CN II-XII Intact, Normal Gait, Oriented x3, Reflexes Normal - Psychiatric Exam Psychiatric exam: Normal Affect, Normal Mood - Skin Skin Exam: Dry, Intact, Normal Color, Warm Discharge Plan - Follow Up Plan Condition: GOOD Disposition: TRANSF TO SNF Instructions: Hypokalemia (DC), Dementia (GEN), Diabetes Mellitus Type 2 in Adults (GEN), Acute Diarrhea (GEN), Hypertension (GEN), Fall Prevention (DC) Additional Instructions: 1. pt to be transferred to [facility] 2. Resume orders as provided. Referrals: PCP,DA [Primary Care Provider] - <Keaton Padilla - Last Filed: 10/31/16 15:56> Provider - Provider Date of Admission: 10/23/16 21:57 Attending physician: Keatno Padilla MD Primary care physician: DA PRIMARY CARE PROVIDER Hospital Course - Lab Results Lab Results: Most Recent Lab Values WBC 7.4 10^3/ul (4.5-11.0) 10/29/16 07:00 RBC 4.21 10^6/uL (3.5-6.1) 10/29/16 07:00 Hgb 13.2 gm/dL (12.0-16.0) 10/29/16 07:00 Hct 39.1 % (36.0-48.0) 10/29/16 07:00 MCV 92.9 fL (80.0-105.0) 10/29/16 07:00 MCH 31.4 pg (25.0-35.0) 10/29/16 07:00 MCHC 33.8 g/dl (31.0-37.0) 10/29/16 07:00 RDW 12.9 % (11.5-14.5) 10/29/16 07:00 Plt Count 247 10^3/uL (120.0-450.0) 10/29/16 07:00 MPV 10.6 fl (7.0-11.0) 10/29/16 07:00 Gran % 61.2 % (50.0-68.0) 10/29/16 07:00 Lymph % (Auto) 24.0 % (22.0-35.0) 10/29/16 07:00 Rice % (Auto) 7.4 % (1.0-6.0) H 10/29/16 07:00 Eos % (Auto) 6.9 % (1.5-5.0) H 10/29/16 07:00 Baso % (Auto) 0.5 % (0.0-3.0) 10/29/16 07:00 Gran # 4.54 (1.4-6.5) 10/29/16 07:00 Lymph # 1.8 (1.2-3.4) 10/29/16 07:00 Rice # 0.6 (0.1-0.6) 10/29/16 07:00 Eos # 0.5 (0.0-0.7) 10/29/16 07:00 Baso # 0.04 K/mm3 (0.0-2.0) 10/29/16 07:00 Sodium 137 mmol/L (132-148) 10/29/16 07:00 Potassium 4.1 mmol/L (3.6-5.0) 10/29/16 07:00 Chloride 103 mmol/L (98-107) 10/29/16 07:00 Carbon Dioxide 28 mmol/L (21-33) 10/29/16 07:00 Anion Gap 10 (10-20) 10/29/16 07:00 BUN 17 mg/dL (7-21) 10/29/16 07:00 Creatinine 0.8 mg/dL (0.5-1.4) 10/29/16 07:00 Est GFR ( Amer) > 60 10/29/16 07:00 Est GFR (Non-Af Amer) > 60 10/29/16 07:00 POC Glucose (mg/dL) 163 mg/dL (65-110) H 10/29/16 07:42 Random Glucose 139 mg/dL (70-110) H 10/29/16 07:00 Calcium 8.8 mg/dL (8.4-10.5) 10/29/16 07:00 Magnesium 1.6 mg/dL (1.7-2.2) L 10/25/16 09:20 Total Bilirubin 0.7 mg/dL (0.2-1.3) 10/29/16 07:00 AST 28 U/L (15-39) 10/29/16 07:00 ALT 27 U/L (7-56) 10/29/16 07:00 Alkaline Phosphatase 106 U/L (38-133) 10/29/16 07:00 Total Protein 6.6 g/dL (5.8-8.3) 10/29/16 07:00 Albumin 3.2 g/dL (3.0-4.8) 10/29/16 07:00 Globulin 3.4 gm/dL 10/29/16 07:00 Albumin/Globulin Ratio 0.9 (1.1-1.8) L 10/29/16 07:00 Procalcitonin 0.07 NG/ML (0.19-0.49) L 10/27/16 09:10 Urine Color Yellow (YELLOW) 10/23/16 21:15 Urine Appearance Clear (CLEAR) 10/23/16 21:15 Urine pH 7.5 (4.7-8.0) 10/23/16 21:15 Ur Specific [place] 1.020 (1.005-1.035) 10/23/16 21:15 Urine Protein Negative mg/dL (<30 mg/dL) 10/23/16 21:15 Urine Glucose (UA) 500 mg/dL (NEGATIVE) H 10/23/16 21:15 Urine Ketones Negative mg/dL (NEGATIVE) 10/23/16 21:15 Urine Blood Trace-intact (NEGATIVE) H 10/23/16 21:15 Urine Nitrate Negative (NEGATIVE) 10/23/16 21:15 Urine Bilirubin Negative (NEGATIVE) 10/23/16 21:15 Urine Urobilinogen 1.0 E.U./dL (<1 E.U./dL) H 10/23/16 21:15 Ur Leukocyte Esterase Negative Carlos/uL (NEGATIVE) 10/23/16 21:15 Urine RBC 2 - 5 /hpf (0-2) 10/23/16 21:15 Urine WBC 0 - 2 /hpf (0-6) 10/23/16 21:15 Ur Epithelial Cells 3 - 4 /hpf (0-5) 10/23/16 21:15 Attending/Attestation - Attestation I have personally seen and examined this patient.: Yes I have fully participated in the care of the patient.: Yes I have reviewed all pertinent clinical information, including history, physical exam and plan: Yes Notes (Text): I have seen and examined the patient at bedside. Agree with the above note with the following additions/ exceptions: This is 81 year old female with history of dementia, multiple falls, polio, left leg weakness who got admitted for evaluation of diarrhea which has resolved. Patient has been tolerating her diet. Hypokalemia has resolved. She had leukocytosis which has resolved now. Patient is afebrile and non toxic. Urine culture is negative. CXR negative. Patient was able to sleep thru the night. There was a suspicion of lewy body dementia as she had visual hallucinations however as per neuro most likely her symptoms are secondary to delirium due to underlying dementia. Psych started her on seroquel. which she tolerated and no longer required the kelli vest. Pt was subsequently transferred to [facility]. Upon discharge patient will follow up with Dr Mooney. Dr Keaton Padilla
== END 2016-10-29 15:25 | DRG 392 ==
LOC: ED 19:32 → ERH 21:57 → 5RSO 23:54
PROVIDERS: ADMIT Internal Medicine; ATTEND Hospitalist
DX: K52.9 Noninfective gastroenteritis and colitis, unspecified (principal); F05 Delirium due to known physiological condition; F03.90 Unspecified dementia, unspecified severity, without behavioral disturbance, psychotic disturbance, mood disturbance, and anxiety; I10 Essential (primary) hypertension; E11.9 Type 2 diabetes mellitus without complications; E78.5 Hyperlipidemia, unspecified; B91 Sequelae of poliomyelitis; R53.1 Weakness; E87.6 Hypokalemia; R44.1 Visual hallucinations; F41.9 Anxiety disorder, unspecified; J45.909 Unspecified asthma, uncomplicated; Z66 Do not resuscitate; R29.6 Repeated falls; H26.9 Unspecified cataract; Z91.81 History of falling; Z96.641 Presence of right artificial hip joint; Z99.3 Dependence on wheelchair; Z78.1 Physical restraint status

== ENCOUNTER 2017-11-17 09:49 | Observation (INO) | payer MEDICARE, OTHER ==
--- NOTE | 2017-11-17 09:58 | ED PDOC ---
Arrival/HPI - General Chief Complaint: Weakness/Neurological Deficit Time Seen by Provider: 11/17/17 09:57 Historian: Patient, [facility], EMS - History of Present Illness Narrative History of Present Illness (Text): 11/17/17 11:04 pt p/w + abnl lab results, low h/h; pt states she has been having some throat irritations/coughing with some productive sputum; pt states otherwise she has no other medical complaints; pt states no fever/chills/sweats, no chest pain/ shortness of breath/palpitations, no abd pain, no n/v, no numbness/tingling, no urinary/bowel changes, no gross bleeding, no fall/trauma/sick contact, no travel ; pt arrived to the emergency department for further eval; pt denied LOC/ dizziness/lightheadedness; pt's without other complaints. PCP: DR Bueno resident at: [facility] ([facility]) Time/Duration: Other (pt with dementia) Symptom Onset: Gradual Symptom Course: Unchanged Activities at Onset: Rest Context: Other ([facility]) Past Medical History - Provider Review Nursing Documentation Reviewed: Yes - Travel History Have you recently traveled outside [place] w/in the past 3 mons?: No - Past History Past History: Non-Contributing - Infectious Disease Hx of Infectious Diseases: None - Reproductive Menopause: Yes Currently : No - Cardiac Hx Cardiac Disorders: Yes Hx Hypertension: Yes - Pulmonary Hx Respiratory Disorders: Yes Hx Asthma: Yes - Neurological Hx Neurological Disorder: Yes Hx Dementia: Yes - HEENT Hx HEENT Disorder: Yes Hx Cataracts: Yes (b/l surgically removed) - Renal Hx Renal Disorder: No - Endocrine/Metabolic Hx Diabetes Mellitus Type 2: Yes - Hematological/Oncological Hx Blood Disorders: No - Integumentary Hx Dermatological Disorder: No - Musculoskeletal/Rheumatological Hx Arthritis: Yes - Gastrointestinal Hx Gastrointestinal Disorders: No - Genitourinary/Gynecological Hx Genitourinary Disorders: No - Psychiatric Hx Psychophysiologic Disorder: Yes Hx Anxiety: Yes Hx Depression: Yes Hx Substance Use: No - Surgical History Other/Comment: Right hip replacement x2 - Anesthesia Hx Anesthesia: Yes Hx Anesthesia Reactions: No Hx Malignant Hyperthermia: No - Suicidal Assessment Feels Threatened In Home Enviroment: No Family/Social History - Physician Review Nursing Documentation Reviewed: Yes Family/Social History: Unknown Family HX Smoking Status: Never Smoked Hx Alcohol Use: No Hx Substance Use: No Hx Substance Use Treatment: No Allergies/Home Meds Allergies/Adverse Reactions: Allergies No Known Allergies Allergy (Verified 10/12/16 08:18) Home Medications: Home Meds Medication Instructions Recorded Confirmed Aspirin [Aspirin Chewable] 81 tab PO DAILY 11/17/17 11/17/17 Atorvastatin [Lipitor] 10 mg PO 11/17/17 Docusate [Colace] 100 cap PO DAILY 11/17/17 11/17/17 Lisinopril [Zestril] 20 mg PO DAILY 11/17/17 11/17/17 Magnesium Hydroxide [Milk Of 30 mg PO CONT 11/17/17 11/17/17 Magnesia] Melatonin [Melatin] 3 mg PO DAILY 11/17/17 11/17/17 Metoprolol Johnson/Hydrochlorothiaz 25 tab PO DAILY 11/17/17 11/17/17 [Metoprolol ER-Hctz 25-12.5 mg] Pantoprazole [Protonix EC Tab] 40 tab PO DAILY 11/17/17 11/17/17 SITagliptin [Januvia] 100 mg PO DAILY 11/17/17 11/17/17 Review of Systems - Review of Systems Constitutional: Fatigue Eyes: Normal ENT: Other (throat irritation) Respiratory: Normal. absent: SOB Cardiovascular: Normal. absent: Chest Pain, Orthopnea Gastrointestinal: Normal. absent: Abdominal Pain, Nausea, Vomiting Genitourinary Female: Normal Musculoskeletal: Normal Skin: Normal. absent: Rash Neurological: absent: Headache, Dizziness Endocrine: Normal Hemo/Lymphatic: Normal Psychiatric: Normal Physical Exam - Physical Exam Narrative Physical Exam (Text): 11/17/17 General: alert/awake, GCS = 15, oriented x 1 (not to date/time/place), resting in bed, uncomfortable, cooperative, interactive; NAD Head: NC/AT; bi-temporal wasting EYE: PERRLA, EOMI, sclera anicteric, no nystagmus, no photophobia; visual field intact b/l Facial: WNL Oral: uvula/tongue are midline, no exudate/lesions, no drooling/stridor, no dysphonia; poor dentitions; moist oral mucosa NECK: intact ROM, no midline tenderness, no nuchal rigidity, no meningeal signs ; no step off Chest: CTA b/l, no w/r/r; no tachypenia, no accessory muscle use noted Chest Wall: no crepitus, no lesions, no gross deformities, no focal tenderness Cardiac: +S1, +S2, no m/r/r, no tachycardia Abdominal: +BS, soft/nd/nt, well nourished patient; no masses/rebound/guarding/ rigidity; no finley's sign, no mcburney's point tenderness RECTAL: guaic negative; small external hemorrhoids noted, non-thrombosed, non- tender/painful Extremities: decr ROM lower extremity, strength 5/5 grossly intact in b/l upper limbs, neurovasc intact b/l; + polio history BACK: no step off, no midline tenderness, NO crepitus, no gross deformities noted; Intact ROM SKIN: cap refill ~ 1 sec, no ulcerations, no petechiae, no rashes; slight gross pallor noted NEURO: CNII-XII WNL, no facial asymmetries, no slurr speech, oriented x 1 (not to date/time/place) Psych: normal insight, normal affect; follows command with ease Vital Signs Reviewed: Yes Vital Signs Temp Pulse Resp BP Pulse Ox 11/17/17 12:45 72 16 140/55 L 99 11/17/17 10:10 98.4 F 79 16 145/65 99 Temperature: Afebrile Blood Pressure: Hypertensive Pulse: Regular Respiratory Rate: Normal Appearance: Positive for: Well-Appearing, Non-Toxic, Comfortable. No: Ill- Appearing, Unkept, Uncomfortable Pain Distress: None Mental Status: Positive for: other (alert/awake, oriented x 1 (not to date/time) ) - Systems Exam Head: Present: Atraumatic, Normocephalic Medical Decision Making ED Course and Treatment: 11/17/17 Impression: abnl lab results I have considered all Differential Diagnosis regarding pt's chief medical complaints/clinical findings included but are not limited to: anemia, r/o infections? Plan: anemia, r/o other causes of weakness - labs - iv - type and screen - xray - observe - supportive care - Reassess and disposition Progress Notes: 1130 pt is doing well pt is comfortable pt is not in any distress vital signs remained stable due to pt's dementia, pt is unable to sign/agree to blood transfusion i did speak to Kina Jennings, pt's daughter and POA, who provided verbal agreement over the phone for pt to receive blood transfusion; Nurse Iva was able to verify and confirm Kina's agreement pt/family are made aware of pt's medical results agrees with admission 11/17/17 12:[address] Lin, hospitalists second baller, who is aware of patient 's condition and agrees with emergency department treatment and management; agrees with admission Re-evaluation Time: 12:30 Reassessment Condition: Unchanged - Lab Interpretations Lab Results: 11/17/17 10:52 11/17/17 10:52 Lab Results 11/17/17 10:52: PT 12.6 H, INR 1.09 H, APTT 27.8 11/17/17 10:52: Sodium 138, Potassium 4.7, Chloride 99, Carbon Dioxide 28, Anion Gap 16, BUN 17, Creatinine 0.7, Est GFR ( Amer) > 60, Est GFR (Non- Af Amer) > 60, Random Glucose 96, Calcium 8.6, Total Bilirubin 0.4, AST 33, ALT 36, Alkaline Phosphatase 62, Troponin I < 0.01, Total Protein 7.3, Albumin 3.8, Globulin 3.4, Albumin/Globulin Ratio 1.1, Lipase 70 11/17/17 10:52: WBC 9.0 D, RBC 3.23 L, Hgb 7.5 L, Hct 23.9 L, MCV 74.0 L, MCH 23.2 L, MCHC 31.4, RDW 16.2 H, Plt Count 375, MPV 9.4, Gran % 61.6, Lymph % ( Auto) 24.8, [place] % (Auto) 7.9 H, Eos % (Auto) 5.3 H, Baso % (Auto) 0.4, Gran # 5.52, Lymph # (Auto) 2.2, [place] # (Auto) 0.7 H, Eos # (Auto) 0.5, Baso # (Auto) 0.04 I have reviewed the lab results: Yes Interpretation: Abnormal lab values (abnl H/H; low valproic acid, mildly elevated gluc) - RAD Interpretation Narrative RAD Interpretations (Text): 11/17/17 12:00 Chest X-ray: Creator : Hanna Choi MD COMPARISON: 10/27/2016. FINDINGS: LUNGS: The lungs are well inflated. No focal consolidation. PLEURA: No significant pleural effusion identified, no pneumothorax apparent. CARDIOVASCULAR: Normal. OSSEOUS STRUCTURES: No significant abnormalities. VISUALIZED UPPER ABDOMEN: Normal. OTHER FINDINGS: None. IMPRESSION: No active pulmonary disease. Radiology Orders: 11/17/17 11:03 CHEST PORTABLE [RAD] Stat [employer] Specialist: Radiologist - EKG Interpretation EKG Interpretation (Text): 11/17/17 17:33 Sinus rhythm at 75 bpm with 1st degre av block, LAD, no ectopy, qs in leads III , diffuse low voltage, poor R-wave progression, no st changes, ABNL EKG; no gross changes compare with old ekg 10/2016 Interpreted by ED Physician: Yes Type: 12 lead EKG Comparison: Similar to previous EKG - Medication Orders Current Medication Orders: Acetaminophen (Tylenol 325mg Tab) 650 mg PO Q6 PRN PRN Reason: Fever >100.4 F Atorvastatin Calcium (Lipitor) 10 mg PO DIN LUISANA Docusate Sodium (Colace) 100 mg PO DAILY LUISANA Hydrochlorothiazide (Microzide) 12.5 mg PO DAILY LUISANA Insulin Human Regular (Humulin R Med) 0 units SC ACHS LUISANA PRN Reason: Protocol Lisinopril (Zestril) 20 mg PO DAILY LUISANA Metoprolol Succinate (Toprol Xl) 25 mg PO DAILY LUISANA Non-Formulary Medication (Melatonin [Melatin]) 3 mg PO QPM LUISANA Pantoprazole Sodium (Protonix Ec Tab) 40 mg PO 0600 [facility] - Scribe Statement The provider has reviewed the documentation as recorded by the Jeannette Douglas Provider Scribe Attestation: All medical record entries made by the Scribe were at my direction and personally dictated by me. I have reviewed the chart and agree that the record accurately reflects my personal performance of the history, physical exam, medical decision making, and the department course for this patient. I have also personally directed, reviewed, and agree with the discharge instructions and disposition. Disposition/Present on Arrival - Present on Arrival Any Indicators Present on Arrival: No History of DVT/PE: No History of Uncontrolled Diabetes: No Urinary Catheter: No History of Decub. Ulcer: No History Surgical Site Infection Following: None - Disposition Have Diagnosis and Disposition been Completed?: Yes Diagnosis: Acute anemia Disposition: HOSPITALIZED Disposition Time: 12:10 Patient Plan: Admission Condition: STABLE
[2017-11-17 10:07] VITALS: BMI 23.2
[2017-11-17 11:14] LABS: BASO # 0.04 K/mm3 (0.0-2.0); BASO % 0.4 % (0.0-3.0); EOS # 0.5 (0.0-0.7); EOS % 5.3 % (1.5-5.0); GRAN # 5.52 (1.4-6.5); GRAN % 61.6 % (50.0-68.0); HEMOGLOBIN 7.5 g/dL (12.0-16.0); LYMPH # 2.2 (1.2-3.4); LYMPH % 24.8 % (22.0-35.0); MEAN CORPUSCULAR HEMOGLOBIN 23.2 pg (25.0-35.0); MEAN CORPUSCULAR HGB CONC 31.4 g/dl (31.0-37.0); MEAN PLATELET VOLUME 9.4 fl (7.0-11.0); MONO # 0.7 (0.1-0.6); MONO % 7.9 % (1.0-6.0); RBC 3.23 10^6/uL (3.5-6.1); RED CELL DISTRIBUTION WIDTH 16.2 % (11.5-14.5)
[2017-11-17 11:24] LABS: ALB/GLOB RATIO 1.1 (1.1-1.8); ALBUMIN 3.8 g/dL (3.0-4.8); ALT/SGPT 36 U/L (7-56); AST/SGOT 33 U/L (14-36); BLOOD UREA NITROGEN 17 mg/dL (7-21); CALCIUM 8.6 mg/dL (8.4-10.5); GFR NON-AFRICAN AMERICAN > 60; LIPASE 70 U/L (23-300)
[2017-11-17 11:36] LABS: TROPONIN I < 0.01 ng/mL
[2017-11-17 11:48] LABS: INR 1.09 (0.93-1.08); PARTIAL THROMBOPLASTIN TIME 27.8 Seconds (25.1-36.5); PROTHROMBIN TIME 12.6 SECONDS (9.4-12.5)
--- NOTE | 2017-11-17 11:57 | RAD ---
HISTORY: weakness, abnl labs COMPARISON: 10/27/2016. FINDINGS: LUNGS: The lungs are well inflated. No focal consolidation. PLEURA: No significant pleural effusion identified, no pneumothorax apparent. CARDIOVASCULAR: Normal. OSSEOUS STRUCTURES: No significant abnormalities. VISUALIZED UPPER ABDOMEN: Normal. OTHER FINDINGS: None. IMPRESSION: No active pulmonary disease.
--- NOTE | 2017-11-17 13:00 | CP.PCM.HP ---
<Conrado Jose - Last Filed: 11/17/17 17:30> History of Present Illness - History of Present Illness History of Present Illness: H&P CC: abnormal labs from prison 82F pmhx significant for dementia, HTN, diabetes [place] [facility] [place] [facility] due to abnormal labs. Patient's Hgb was 6.9 and was brought in for transfusion. Repeat labs in ED was 7.5. Patient is AAOx1 to person only. HPI was obtained through chart, previous medical records and daughter via telephone. Patient denies blood in stool, bright red blood per rectum, hematemesis, or signs of overt bleeding. Denies current: fevers, chills, chest pain, shortness of breath, nausea, vomiting, diarrhea, light headedness, LOC PMH: stated above, insomnia, anxiety, asthma, polio, cataracts PSH: PABLO x2 ALL: NKDA SocialHx: lives at [facility][note 3]. Denies ETOH, tobacco, recreational drug use FH: non-contributory PMD: Dr. Bueno Present on Admission - Present on Admission Any Indicators Present on Admission: No Review of Systems - Review of Systems All systems: reviewed and no additional remarkable complaints except - Constitutional Constitutional: As Per HPI Past Patient History - Infectious Disease Hx of Infectious Diseases: None - Past Medical History & Family History Past Medical History?: Yes - Past Social History Smoking Status: Never Smoked - CARDIAC Hx Cardiac Disorders: Yes Hx Hypertension: Yes - PULMONARY Hx Respiratory Disorders: Yes Hx Asthma: Yes - NEUROLOGICAL Hx Neurological Disorder: Yes Hx Dementia: Yes - HEENT Hx HEENT Problems: Yes Hx Cataracts: Yes (b/l surgically removed) - RENAL Hx Chronic Kidney Disease: No - ENDOCRINE/METABOLIC Hx Diabetes Mellitus Type 2: Yes - HEMATOLOGICAL/ONCOLOGICAL Hx Blood Disorders: No - INTEGUMENTARY Hx Dermatological Problems: No - MUSCULOSKELETAL/RHEUMATOLOGICAL Hx Arthritis: Yes - GASTROINTESTINAL Hx Gastrointestinal Disorders: No - GENITOURINARY/GYNECOLOGICAL Hx Genitourinary Disorders: No - PSYCHIATRIC Hx Psychophysiologic Disorder: Yes Hx Anxiety: Yes Hx Depression: Yes Hx Substance Use: No - SURGICAL HISTORY Other/Comment: Right hip replacement x2 - ANESTHESIA Hx Anesthesia: Yes Hx Anesthesia Reactions: No Hx Malignant Hyperthermia: No Meds Allergies/Adverse Reactions: Allergies Allergy/AdvReac Type Severity Reaction Status Date / Time No Known Allergies Allergy Verified 10/12/16 08:18 Physical Exam - Constitutional Appears: Non-toxic, No Acute Distress, Agitated - Head Exam Head Exam: ATRAUMATIC - Eye Exam Eye Exam: EOMI. absent: Scleral icterus - ENT Exam ENT Exam: Mucous Membranes Moist - Respiratory Exam Respiratory Exam: NORMAL BREATHING PATTERN. absent: Accessory Muscle Use, Rales , Rhonchi, Wheezes, Respiratory Distress - Cardiovascular Exam Cardiovascular Exam: +S1, +S2. absent: Bradycardia, Tachycardia, Gallop, Rubs - GI/Abdominal Exam GI & Abdominal Exam: Soft. absent: Distended, Firm, Rebound, Rigid, Tenderness - Extremities Exam Extremities exam: Positive for: calf tenderness, normal inspection, pedal edema - Neurological Exam Neurological exam: Alert, Oriented x3 - Psychiatric Exam Psychiatric exam: Normal Affect - Skin Skin Exam: Intact, Warm Results - Vital Signs Recent Vital Signs: Last Vital Signs Temp 98.4 F 11/17/17 10:10 Pulse 79 11/17/17 10:10 Resp 16 11/17/17 10:10 BP 145/65 11/17/17 10:10 Pulse Ox 99 11/17/17 10:10 - Labs Result Diagrams: 11/17/17 10:52 11/17/17 10:52 Labs: Laboratory Results - last 24 hr 11/17/17 12:20 Valproic Acid 14 L Assessment & Plan - Assessment and Plan (Free Text) Assessment: 82F w/ pmhx significant for polio w/ residual left sided weakness, HTN, DM, asthma, anxiety, DM, dementia admitted for Anemia. Repeat Hgb 7.5 Plan: Anemia - Hgb at [facility] home 6.9, repeat 7.5; last Hgb in 10/2016 was 13 - current asymptomatic - Transfuse 1u - repeat AM labs - consulted service, GI; all recs appreciated - f/u labs; Retic count, Iron studies, transferrin levels hx of Dementia - baseline is AAOx1 to person. Occasionally to place - c/w home medication depakote hx of HTN - controlled - continue home medication - continue to monitor hx of DM - hold home medication - lispro ISS- low - Fingersticks ACHS HLD - continue home statin- lipitor GI- protonix DVT- SCDs Case discussed with Dr. Pate medical attending Merchant PGY1 <Andreina Pated - Last Filed: 11/21/17 13:57> Results - Vital Signs Recent Vital Signs: Last Vital Signs Temp 98.3 F 11/18/17 06:00 Pulse 69 11/18/17 10:28 Resp 20 11/18/17 06:00 BP 153/69 H 11/18/17 10:28 Pulse Ox 100 11/18/17 06:00 - Labs Result Diagrams: 11/18/17 06:30 11/18/17 06:30 Attending/Attestation - Attestation I have personally seen and examined this patient.: Yes I have fully participated in the care of the patient.: Yes I have reviewed all pertinent clinical information: Yes Notes (Text): 11/21/17 13:56 Medical record note made by the resident after discussion with my direction and input after the patient was personally seen and examined by me. I have reviewed the chart and agree that the record accurately reflects by personal performance of the history, physical exam, data review, and medical decision-making, in the course for the patient. I have also personally directed the plan of care. 82 year old female with history of dementia, multiple falls, polio, left leg weakness [place] with low Hemoglobin, Hemoglobin 7.5, has microcytic hypochromic anemia, stool guiac is negative, no active bleeding, Anemia work up is ordered, we will plan for one unit PRBC and will get , GI Consult.
[2017-11-17] MEDS: Insulin Reg-MEDIUM-Coverage SC SCH ×2 (17:36→21:17)
[2017-11-17] MEDS ORDERED: Pneumococcal 23-Valent Vaccine IM ONE (18:22)
[2017-11-17 20:32] LABS: IRON 20 ug/dL (45-180)
[2017-11-17 20:41] LABS: % IRON SATURATION 5 % (20-55); TOTAL IRON BINDING CAPACITY 411 ug/dL (265-497)
[2017-11-17] MEDS ORDERED: MELATONIN 3 MG PO SCH (22:00)
--- NOTE | 2017-11-17 22:45 | CARD ---
APPROVED REPORT EKG Measurement Heart [id number] <Conclusion> Sinus rhythm with 1st degree AV block Cannot rule out Anterior infarct, age undetermined Abnormal ECG
[2017-11-18] MEDS ORDERED: Pantoprazole 40 mg EC Tab PO SCH (06:00)
[2017-11-18 06:12] VITALS: O2SAT 100
[2017-11-18 06:56] LABS: BASO # 0.03 K/mm3 (0.0-2.0); BASO % 0.4 % (0.0-3.0); EOS # 0.8 (0.0-0.7); EOS % 9.1 % (1.5-5.0); GRAN # 5.14 (1.4-6.5); GRAN % 61.6 % (50.0-68.0); HEMOGLOBIN 8.7 g/dL (12.0-16.0); LYMPH # 1.7 (1.2-3.4); LYMPH % 20.3 % (22.0-35.0); MEAN CELL VOLUME 75.3 fl (80.0-105.0); MEAN CORPUSCULAR HEMOGLOBIN 24.2 pg (25.0-35.0); MEAN CORPUSCULAR HGB CONC 32.1 g/dl (31.0-37.0); MEAN PLATELET VOLUME 9.5 fl (7.0-11.0); MONO # 0.7 (0.1-0.6); MONO % 8.6 % (1.0-6.0); RBC 3.6 10^6/uL (3.5-6.1); RED CELL DISTRIBUTION WIDTH 15.9 % (11.5-14.5); WHITE BLOOD COUNT 8.3 10^3/ul (4.5-11.0)
[2017-11-18 07:12] LABS: BLOOD UREA NITROGEN 14 mg/dL (7-21); CALCIUM 8.4 mg/dL (8.4-10.5); GFR NON-AFRICAN AMERICAN > 60
--- NOTE | 2017-11-18 07:30 | CP.PCM.CON ---
<Rony Parish - Last Filed: 11/18/17 10:36> History of Present Illness - History of Present Illness History of Present Illness: PGY5 GI Fellow Consult Note Patient is an 82yo female with PMHx significant for dementia, HTN, DM, hyperlipidemia, Polio with residual left leg weakness who was [place] abnormal [place] work. The patient was found to be anemia on routine blood work with HGB of 6.9. Repeat evaluation in the ED showed HGB of 7.5. There is no documentation of any overt blood loss prior to arrival and none since admission. Admits to some mild epigastric and lower/suprapubic abdominal pain intermittently. Does note constipation. 12 system ROS cannot be performed given dementia PMHx: See HPI PSHx: Right hip replacement x2 FHx: Unable to assess given dementia Social: No tobacco, EtOH or illicit drug use Endo: EGD for dysphagia 11/2013 Lower esophageal ring, hiatal hernia, gastritis, duodenitis s/p balloon dilation Past Patient History - Infectious Disease Hx of Infectious Diseases: None - Past Medical History & Family History Past Medical History?: Yes - Past Social History Smoking Status: Never Smoked - CARDIAC Hx Cardiac Disorders: Yes Hx Hypercholesterolemia: Yes Hx Hypertension: Yes - PULMONARY Hx Respiratory Disorders: Yes Hx Asthma: Yes - NEUROLOGICAL Hx Neurological Disorder: Yes Hx Dementia: Yes - HEENT Hx HEENT Problems: Yes Hx Cataracts: Yes (b/l surgically removed) - RENAL Hx Chronic Kidney Disease: No - ENDOCRINE/METABOLIC Hx Diabetes Mellitus Type 2: Yes - HEMATOLOGICAL/ONCOLOGICAL Hx Blood Disorders: No - INTEGUMENTARY Hx Dermatological Problems: No - MUSCULOSKELETAL/RHEUMATOLOGICAL Hx Falls: Yes (past) - GASTROINTESTINAL Hx Gastrointestinal Disorders: No - GENITOURINARY/GYNECOLOGICAL Hx Genitourinary Disorders: No - PSYCHIATRIC Hx Substance Use: No - SURGICAL HISTORY Hx Surgeries: Yes Other/Comment: Right hip replacement x2 - ANESTHESIA Hx Anesthesia: Yes Hx Anesthesia Reactions: No Hx Malignant Hyperthermia: No Meds Allergies/Adverse Reactions: Allergies Allergy/AdvReac Type Severity Reaction Status Date / Time No Known Allergies Allergy Verified 10/12/16 08:18 - Medications Medications: Current Medications Acetaminophen (Tylenol 325mg Tab) 650 mg PO Q6 PRN PRN Reason: Fever >100.4 F Last Admin: 11/17/17 23:10 Dose: 650 mg Atorvastatin Calcium (Lipitor) 10 mg PO DIN [facility] Last Admin: 11/17/17 17:36 Dose: 10 mg Docusate Sodium (Colace) 100 mg PO DAILY [facility] Hydrochlorothiazide (Microzide) 12.5 mg PO DAILY [facility] Insulin Human Regular (Humulin R Med) 0 units SC ACHS [facility] PRN Reason: Protocol Last Admin: 11/17/17 21:17 Dose: Not Given Lisinopril (Zestril) 20 mg PO DAILY [facility] Metoprolol Succinate (Toprol Xl) 25 mg PO DAILY [facility] Non-Formulary Medication (Melatonin [Melatin]) 3 mg PO QPM [facility] Last Admin: 11/17/17 21:28 Dose: Not Given Pantoprazole Sodium (Protonix Ec Tab) 40 mg PO 0600 [facility] Last Admin: 11/18/17 05:52 Dose: 40 mg Physical Exam - Constitutional Appears: Non-toxic, No Acute Distress - Eye Exam Eye Exam: EOMI, PERRL - ENT Exam ENT Exam: Mucous Membranes Moist - Respiratory Exam Respiratory Exam: Clear to Auscultation Bilateral. absent: Rales, Rhonchi, Wheezes - Cardiovascular Exam Cardiovascular Exam: RRR, +S1, +S2 - GI/Abdominal Exam GI & Abdominal Exam: Normal Bowel Sounds, Soft. absent: Distended, Firm, Guarding, Organomegaly, Rigid, Tenderness - Extremities Exam Extremities exam: Negative for: pedal edema Additional comments: LLE weakness 2/2 h/o Polio - Neurological Exam Additional comments: Awake, oriented to person, place - Psychiatric Exam Psychiatric exam: Normal Affect, Normal Mood - Skin Skin Exam: Dry, Warm Results - Vital Signs Recent Vital Signs: Last Vital Signs Temp 98 F 11/17/17 22:00 Pulse 64 11/17/17 22:00 Resp 18 11/17/17 22:00 BP 142/59 L 11/17/17 22:00 Pulse Ox 100 11/17/17 22:00 - Labs Result Diagrams: 11/18/17 06:30 11/18/17 06:30 Labs: Laboratory Results - last 24 hr 11/17/17 11/17/17 11/17/17 12:20 12:30 15:37 WBC RBC Hgb Hct MCV MCH MCHC RDW Plt Count MPV Gran % Lymph % (Auto) Linn % (Auto) Eos % (Auto) Baso % (Auto) Gran # Lymph # (Auto) Linn # (Auto) Eos # (Auto) Baso # (Auto) Sodium Potassium Chloride Carbon Dioxide Anion Gap BUN Creatinine Est GFR ( Amer) Est GFR (Non-Af Amer) POC Glucose (mg/dL) 133 H Random Glucose Calcium Valproic Acid 14 L Blood Type O POSITIVE Antibody Screen Negative Crossmatch See Detail BBK History Checked Patient has bt 11/17/17 11/18/17 11/18/17 20:58 06:30 06:30 WBC 8.3 RBC 3.60 Hgb 8.7 L Hct 27.1 L MCV 75.3 L MCH 24.2 L MCHC 32.1 RDW 15.9 H Plt Count 334 MPV 9.5 Gran % 61.6 Lymph % (Auto) 20.3 L Linn % (Auto) 8.6 H Eos % (Auto) 9.1 H Baso % (Auto) 0.4 Gran # 5.14 Lymph # (Auto) 1.7 Linn # (Auto) 0.7 H Eos # (Auto) 0.8 H Baso # (Auto) 0.03 Sodium 138 Potassium 4.2 Chloride 101 Carbon Dioxide 29 Anion Gap 12 BUN 14 Creatinine 0.7 Est GFR ( Amer) > 60 Est GFR (Non-Af Amer) > 60 POC Glucose (mg/dL) 108 Random Glucose 120 H Calcium 8.4 Valproic Acid Blood Type Antibody Screen Crossmatch BBK History Checked 11/18/17 06:48 WBC RBC Hgb Hct MCV MCH MCHC RDW Plt Count MPV Gran % Lymph % (Auto) Linn % (Auto) Eos % (Auto) Baso % (Auto) Gran # Lymph # (Auto) Linn # (Auto) Eos # (Auto) Baso # (Auto) Sodium Potassium Chloride Carbon Dioxide Anion Gap BUN Creatinine Est GFR ( Amer) Est GFR (Non-Af Amer) POC Glucose (mg/dL) 133 H Random Glucose Calcium Valproic Acid Blood Type Antibody Screen Crossmatch BBK History Checked Assessment & Plan - Assessment and Plan (Free Text) Assessment: Patient is an 82yo female with PMHx significant for dementia, HTN, DM, hyperlipidemia, Polio with residual left leg weakness who was [place] the [place] for abnormal blood work. -Microcytic iron deficiency anemia -Constipation Plan: -Patient with no evidence of overt GI bleeding prior to or during admission -Recommend bowel regimen with Miralax 17g PO QD, discontinue colace -OK to discontinue PPI therapy - no evidence of GERD noted in history, no epigastric discomfort on exam, no evidence of acute GI bleeding and no need for prophylaxis -Will benefit from outpatient evaluation with EGD/Colonoscopy - Date & Time Date: 11/18/17 Time: 10:00 <Beltran Khalil - Last Filed: 11/18/17 13:38> Meds - Medications Medications: Current Medications Acetaminophen (Tylenol 325mg Tab) 650 mg PO Q6 PRN PRN Reason: Fever >100.4 F Last Admin: 11/18/17 09:00 Dose: 650 mg Atorvastatin Calcium (Lipitor) 10 mg PO DIN [facility] Last Admin: 11/17/17 17:36 Dose: 10 mg Benzonatate (Tessalon Perles) 100 mg PO TID PRN PRN Reason: Cough Last Admin: 11/18/17 09:00 Dose: 100 mg Guaifenesin (Robitussin) 100 mg PO Q4H PRN PRN Reason: Cough Last Admin: 11/18/17 11:15 Dose: 100 mg Hydrochlorothiazide (Microzide) 12.5 mg PO DAILY [facility] Last Admin: 11/18/17 11:11 Dose: Not Given Insulin Human Regular (Humulin R Med) 0 units SC ACHS [facility] PRN Reason: Protocol Last Admin: 11/18/17 12:01 Dose: Not Given Lisinopril (Zestril) 20 mg PO DAILY [facility] Last Admin: 11/18/17 10:27 Dose: 20 mg Metoprolol Succinate (Toprol Xl) 25 mg PO DAILY [facility] Last Admin: 11/18/17 10:28 Dose: 25 mg Non-Formulary Medication (Melatonin [Melatin]) 3 mg PO QPM [facility] Last Admin: 11/17/17 21:28 Dose: Not Given Pantoprazole Sodium (Protonix Ec Tab) 40 mg PO 0600 [facility] Last Admin: 11/18/17 05:52 Dose: 40 mg Polyethylene Glycol (Miralax) 17 gm PO DAILY [facility] Last Admin: 11/18/17 11:11 Dose: 17 gm Results - Vital Signs Recent Vital Signs: Last Vital Signs Temp 98.3 F 11/18/17 06:00 Pulse 69 11/18/17 10:28 Resp 20 11/18/17 06:00 BP 153/69 H 11/18/17 10:28 Pulse Ox 100 11/18/17 06:00 - Labs Result Diagrams: 11/18/17 06:30 11/18/17 06:30 Labs: Laboratory Results - last 24 hr 11/17/17 11/17/17 11/17/17 12:30 15:37 20:58 WBC RBC Hgb Hct MCV MCH MCHC RDW Plt Count MPV Gran % Lymph % (Auto) Linn % (Auto) Eos % (Auto) Baso % (Auto) Gran # Lymph # (Auto) Linn # (Auto) Eos # (Auto) Baso # (Auto) Sodium Potassium Chloride Carbon Dioxide Anion Gap BUN Creatinine Est GFR ( Amer) Est GFR (Non-Af Amer) POC Glucose (mg/dL) 133 H 108 Random Glucose Calcium Blood Type O POSITIVE Antibody Screen Negative Crossmatch See Detail BBK History Checked Patient has bt 11/18/17 11/18/17 11/18/17 06:30 06:30 06:48 WBC 8.3 RBC 3.60 Hgb 8.7 L Hct 27.1 L MCV 75.3 L MCH 24.2 L MCHC 32.1 RDW 15.9 H Plt Count 334 MPV 9.5 Gran % 61.6 Lymph % (Auto) 20.3 L Linn % (Auto) 8.6 H Eos % (Auto) 9.1 H Baso % (Auto) 0.4 Gran # 5.14 Lymph # (Auto) 1.7 Linn # (Auto) 0.7 H Eos # (Auto) 0.8 H Baso # (Auto) 0.03 Sodium 138 Potassium 4.2 Chloride 101 Carbon Dioxide 29 Anion Gap 12 BUN 14 Creatinine 0.7 Est GFR ( Amer) > 60 Est GFR (Non-Af Amer) > 60 POC Glucose (mg/dL) 133 H Random Glucose 120 H Calcium 8.4 Blood Type Antibody Screen Crossmatch BBK History Checked 11/18/17 10:57 WBC RBC Hgb Hct MCV MCH MCHC RDW Plt Count MPV Gran % Lymph % (Auto) Linn % (Auto) Eos % (Auto) Baso % (Auto) Gran # Lymph # (Auto) Linn # (Auto) Eos # (Auto) Baso # (Auto) Sodium Potassium Chloride Carbon Dioxide Anion Gap BUN Creatinine Est GFR ( Amer) Est GFR (Non-Af Amer) POC Glucose (mg/dL) 105 Random Glucose Calcium Blood Type Antibody Screen Crossmatch BBK History Checked Attending/Attestation - Attestation I have personally seen and examined this patient.: Yes I have fully participated in the care of the patient.: Yes I have reviewed all pertinent clinical information: Yes Notes (Text): 11/18/17 13:29 This is a 82yo female with PMHx significant for dementia, HTN, DM, hyperlipidemia, Polio with residual left leg weakness who was [place] abnormal blood work found to have microcytic iron deficiency anemia. She denies hematemesis, hemoptysis or rectal bleeding or dark stools. She denies nausea, vomiting or abdominal pain. No evidence of overt GI bleeding. Will start laxatives and stool softeners. Will benefit from outpatient evaluation with EGD/ colonoscopy.
[2017-11-18] MEDS ORDERED: guaiFENesin 100 mg/5 ml Syrup UD PO PRN (08:19)
[2017-11-18 08:23] VITALS: RESP 20; TEMP 98.3
[2017-11-18] MEDS: Insulin Reg-MEDIUM-Coverage SC SCH ×2 (08:40→12:01)
[2017-11-18] MEDS ORDERED: Metoprolol Succinate 25 mg XL Tab PO SCH (10:00)
[2017-11-18 10:38] VITALS: BP 153/69; PULSE 69
[2017-11-18] MEDS ORDERED: POLYETHYLENE GLYCOL 3350 17 GM/Dose PACKET PO SCH (10:45)
--- NOTE | 2017-11-18 12:01 | CP.PCM.DIS ---
<SachinJonathon - Last Filed: 11/18/17 12:22> Provider - Provider Date of Admission: 11/17/17 12:05 Attending physician: Lex Lin MD Primary care physician: PMD: Dr. Bueno Consults: GI: Dr. Sampson Time Spent in preparation of Discharge (in minutes): 35 Diagnosis - Discharge Diagnosis (1) Acute anemia Status: Acute (2) Dementia Status: Chronic (3) Hypertension Status: Chronic Hospital Course - Lab Results Lab Results: Most Recent Lab Values WBC 8.3 10^3/ul (4.5-11.0) 11/18/17 06:30 RBC 3.60 10^6/uL (3.5-6.1) 11/18/17 06:30 Hgb 8.7 g/dL (12.0-16.0) L 11/18/17 06:30 Hct 27.1 % (36.0-48.0) L 11/18/17 06:30 MCV 75.3 fl (80.0-105.0) L 11/18/17 06:30 MCH 24.2 pg (25.0-35.0) L 11/18/17 06:30 MCHC 32.1 g/dl (31.0-37.0) 11/18/17 06:30 RDW 15.9 % (11.5-14.5) H 11/18/17 06:30 Plt Count 334 10^3/uL (120.0-450.0) 11/18/17 06:30 MPV 9.5 fl (7.0-11.0) 11/18/17 06:30 Gran % 61.6 % (50.0-68.0) 11/18/17 06:30 Lymph % (Auto) 20.3 % (22.0-35.0) L 11/18/17 06:30 [place] % (Auto) 8.6 % (1.0-6.0) H 11/18/17 06:30 Eos % (Auto) 9.1 % (1.5-5.0) H 11/18/17 06:30 Baso % (Auto) 0.4 % (0.0-3.0) 11/18/17 06:30 Gran # 5.14 (1.4-6.5) 11/18/17 06:30 Lymph # (Auto) 1.7 (1.2-3.4) 11/18/17 06:30 [place] # (Auto) 0.7 (0.1-0.6) H 11/18/17 06:30 Eos # (Auto) 0.8 (0.0-0.7) H 11/18/17 06:30 Baso # (Auto) 0.03 K/mm3 (0.0-2.0) 11/18/17 06:30 Retic Count 1.54 % (0.5-1.5) H 11/17/17 10:52 PT 12.6 SECONDS (9.4-12.5) H 11/17/17 10:52 INR 1.09 (0.93-1.08) H 11/17/17 10:52 APTT 27.8 Seconds (25.1-36.5) 11/17/17 10:52 Sodium 138 mmol/L (132-148) 11/18/17 06:30 Potassium 4.2 mmol/L (3.6-5.0) 11/18/17 06:30 Chloride 101 mmol/L (98-107) 11/18/17 06:30 Carbon Dioxide 29 mmol/L (21-33) 11/18/17 06:30 Anion Gap 12 (10-20) 11/18/17 06:30 BUN 14 mg/dL (7-21) 11/18/17 06:30 Creatinine 0.7 mg/dl (0.7-1.2) 11/18/17 06:30 Est GFR ( Amer) > 60 11/18/17 06:30 Est GFR (Non-Af Amer) > 60 11/18/17 06:30 POC Glucose (mg/dL) 105 mg/dL (65-110) 11/18/17 10:57 Random Glucose 120 mg/dL (70-110) H 11/18/17 06:30 Calcium 8.4 mg/dL (8.4-10.5) 11/18/17 06:30 Iron 20 ug/dL (45-180) L 11/17/17 10:52 TIBC 411 ug/dL (265-497) 11/17/17 10:52 % Saturation 5 % (20-55) L 11/17/17 10:52 Total Bilirubin 0.4 mg/dL (0.2-1.3) 11/17/17 10:52 AST 33 U/L (14-36) 11/17/17 10:52 ALT 36 U/L (7-56) 11/17/17 10:52 Alkaline Phosphatase 62 U/L (38-126) 11/17/17 10:52 Troponin I < 0.01 ng/mL 11/17/17 10:52 Total Protein 7.3 g/dL (5.8-8.3) 11/17/17 10:52 Albumin 3.8 g/dL (3.0-4.8) 11/17/17 10:52 Globulin 3.4 gm/dL 11/17/17 10:52 Albumin/Globulin Ratio 1.1 (1.1-1.8) 11/17/17 10:52 Lipase 70 U/L (23-300) 11/17/17 10:52 Valproic Acid 14 ug/mL (50.0-100.0) L 11/17/17 12:20 Blood Type O POSITIVE 11/17/17 12:30 Antibody Screen Negative 11/17/17 12:30 Crossmatch See Detail 11/17/17 12:30 BBK History Checked Patient has bt 11/17/17 12:30 - Hospital Course Hospital Course: 82F with past medical history significant for dementia, HTN, diabetes presents to [facility] emergency department from [facility] due to abnormal labs. Patient's Hgb was noted to be 6.9 at half-way and upon evaluation in ED her Hgb was 7.5. Patient was admitted for suspected GI bleed. Fecal occult in ED was negative. Gastroenterology was consulted and evaluated the patient with recommendations for outpatient follow up of EGD and colonoscopy. Patient was transfused one unit of pRBC with improvement of hemoglobin to 8.7. Patient vital signs remained stable throughout stay and denied symptoms of chest pain, shortness of breath, abdominal pain, blood in stool or coughing up blood. Patient was found to have iron deficiency anemia and placed on iron supplementation. Discharge planning including outpatient follow up, medication reconciliation and signs and symptoms to monitor were discussed with patient and placed in documentation of discharge paperwork to be returned to half-way. Patient was discharged back to [facility]. - Date & Time of H&P Date of H&P: 11/17/17 Time of H&P: 12:55 Discharge Exam - Head Exam Head Exam: ATRAUMATIC, NORMAL INSPECTION, NORMOCEPHALIC - Eye Exam Eye Exam: EOMI, PERRL - Neck Exam Neck exam: Full Rom - Respiratory Exam Respiratory Exam: Clear to PA & Lateral, NORMAL BREATHING PATTERN. absent: Respiratory Distress - Cardiovascular Exam Cardiovascular Exam: REGULAR RHYTHM, +S1, +S2 - GI/Abdominal Exam GI & Abdominal Exam: Normal Bowel Sounds, Soft. absent: Tenderness - Extremities Exam Extremities exam: normal capillary refill, pedal pulses present - Neurological Exam Neurological exam: Alert, CN II-XII Intact, Normal Gait Additional comments: AAOx2 - Psychiatric Exam Psychiatric exam: Normal Affect, Normal Mood - Skin Skin Exam: Dry, Warm Discharge Plan - Discharge Medications Prescriptions: Ferrous Sulfate [Feosol] 325 mg PO DAILY 30 Days #30 tab - Follow Up Plan Condition: STABLE Instructions: Anemia Caused by Low Iron, Preventing Falls in the Older Adult, Dementia (DC) Additional Instructions: Continue taking medications prescribed from half-way, new medications for you include Ferrous sulfate 325mg PO Daily for Iron deficiency Anemia Follow up with primary care physician Follow up with Dr. Sampson for outpatient work up with recommendation of EGD and colonoscopy Monitor for dizziness, shortness of breath, chest pain, bloody bowel movement, coughing up blood, intractable abdominal pain Referrals: Fady Sampson MD [Staff Provider] - <Antonietta Madden - Last Filed: 11/18/17 14:27> Provider - Provider Date of Admission: 11/17/17 12:05 Attending physician: Lex Lin MD Hospital Course - Lab Results Lab Results: Most Recent Lab Values WBC 8.3 10^3/ul (4.5-11.0) 11/18/17 06:30 RBC 3.60 10^6/uL (3.5-6.1) 11/18/17 06:30 Hgb 8.7 g/dL (12.0-16.0) L 11/18/17 06:30 Hct 27.1 % (36.0-48.0) L 11/18/17 06:30 MCV 75.3 fl (80.0-105.0) L 11/18/17 06:30 MCH 24.2 pg (25.0-35.0) L 11/18/17 06:30 MCHC 32.1 g/dl (31.0-37.0) 11/18/17 06:30 RDW 15.9 % (11.5-14.5) H 11/18/17 06:30 Plt Count 334 10^3/uL (120.0-450.0) 11/18/17 06:30 MPV 9.5 fl (7.0-11.0) 11/18/17 06:30 Gran % 61.6 % (50.0-68.0) 11/18/17 06:30 Lymph % (Auto) 20.3 % (22.0-35.0) L 11/18/17 06:30 [place] % (Auto) 8.6 % (1.0-6.0) H 11/18/17 06:30 Eos % (Auto) 9.1 % (1.5-5.0) H 11/18/17 06:30 Baso % (Auto) 0.4 % (0.0-3.0) 11/18/17 06:30 Gran # 5.14 (1.4-6.5) 11/18/17 06:30 Lymph # (Auto) 1.7 (1.2-3.4) 11/18/17 06:30 [place] # (Auto) 0.7 (0.1-0.6) H 11/18/17 06:30 Eos # (Auto) 0.8 (0.0-0.7) H 11/18/17 06:30 Baso # (Auto) 0.03 K/mm3 (0.0-2.0) 11/18/17 06:30 Retic Count 1.54 % (0.5-1.5) H 11/17/17 10:52 PT 12.6 SECONDS (9.4-12.5) H 11/17/17 10:52 INR 1.09 (0.93-1.08) H 11/17/17 10:52 APTT 27.8 Seconds (25.1-36.5) 11/17/17 10:52 Sodium 138 mmol/L (132-148) 11/18/17 06:30 Potassium 4.2 mmol/L (3.6-5.0) 11/18/17 06:30 Chloride 101 mmol/L (98-107) 11/18/17 06:30 Carbon Dioxide 29 mmol/L (21-33) 11/18/17 06:30 Anion Gap 12 (10-20) 11/18/17 06:30 BUN 14 mg/dL (7-21) 11/18/17 06:30 Creatinine 0.7 mg/dl (0.7-1.2) 11/18/17 06:30 Est GFR ( Amer) > 60 11/18/17 06:30 Est GFR (Non-Af Amer) > 60 11/18/17 06:30 POC Glucose (mg/dL) 105 mg/dL (65-110) 11/18/17 10:57 Random Glucose 120 mg/dL (70-110) H 11/18/17 06:30 Calcium 8.4 mg/dL (8.4-10.5) 11/18/17 06:30 Iron 20 ug/dL (45-180) L 11/17/17 10:52 TIBC 411 ug/dL (265-497) 11/17/17 10:52 % Saturation 5 % (20-55) L 11/17/17 10:52 Ferritin 11.3 ng/mL 11/17/17 10:52 Total Bilirubin 0.4 mg/dL (0.2-1.3) 11/17/17 10:52 AST 33 U/L (14-36) 11/17/17 10:52 ALT 36 U/L (7-56) 11/17/17 10:52 Alkaline Phosphatase 62 U/L (38-126) 11/17/17 10:52 Troponin I < 0.01 ng/mL 11/17/17 10:52 Total Protein 7.3 g/dL (5.8-8.3) 11/17/17 10:52 Albumin 3.8 g/dL (3.0-4.8) 11/17/17 10:52 Globulin 3.4 gm/dL 11/17/17 10:52 Albumin/Globulin Ratio 1.1 (1.1-1.8) 11/17/17 10:52 Lipase 70 U/L (23-300) 11/17/17 10:52 Valproic Acid 14 ug/mL (50.0-100.0) L 11/17/17 12:20 Blood Type O POSITIVE 11/17/17 12:30 Antibody Screen Negative 11/17/17 12:30 Crossmatch See Detail 11/17/17 12:30 BBK History Checked Patient has bt 11/17/17 12:30 Attending/Attestation - Attestation I have personally seen and examined this patient.: Yes I have fully participated in the care of the patient.: Yes I have reviewed all pertinent clinical information, including history, physical exam and plan: Yes Notes (Text): 11/18/17 14:24 82 year old female with past medical history of hypertension, diabetes and dementia who was sent from [place] for anemia with hemoglobin 6.9. Here it was 7.5 for which she received 1 unit prbc transfusion. H/H improved. She had no signs of active bleeding. Guaiac was negative. Iron studies were suggestive of iron deficiency anemia. She was seen by GI who recommended outpatient EGD/ colonoscopy. Patient is discharged to [place]. Follow up with pmd and GI for EGD/colonoscopy. Started on iron supplements for anemia and stool softener for constipation. Antonietta Madden MD Hospitalist.
== END 2017-11-18 16:01 ==
LOC: ED 09:49 → INTOOBSV 12:05 → ERH 12:05 → 5RNO 14:06
PROVIDERS: ADMIT Internal Medicine; ATTEND Internal Medicine
DX: D50.9 Iron deficiency anemia, unspecified (principal); E11.9 Type 2 diabetes mellitus without complications; E78.00 Pure hypercholesterolemia, unspecified; E78.5 Hyperlipidemia, unspecified; F03.90 Unspecified dementia, unspecified severity, without behavioral disturbance, psychotic disturbance, mood disturbance, and anxiety; I10 Essential (primary) hypertension; J45.909 Unspecified asthma, uncomplicated; K59.00 Constipation, unspecified; R13.10 Dysphagia, unspecified; Z96.641 Presence of right artificial hip joint; Z98.42 Cataract extraction status, left eye; Z98.41 Cataract extraction status, right eye; Z86.12 Personal history of poliomyelitis
CPT/HCPCS: 36415; 36430; 71045; 80048; 80053; 80164; 82728; 82948; 83540; 83550; 83690; 84484; 85025; 85044; 85610; 85730; 86850; 86900; 86920; 93005; 99281; G0378; P9016